=== PATIENT | male | born 1935 | race Caucasian/White ===

== ENCOUNTER 2017-08-04 09:05 | Inpatient (IN) | payer OTHER ==
[~2017-08-04] VITALS: Ht 185.4 cm; Wt 76.9 kg
[~2017-08-04 09:05] MED LIST: ALBU3IS INH; ALLO300 PO; ATOR80 PO; BISA5EC PO; BUPR75 PO; CEFD300 PO; CEPH500 PO; CYAN1000 PO; DIPHTC TOP; DOCU100 PO; ELIQUIS2.5 MG PO; FISH1000 PO; FLUO10 PO; LINZESS145 MCG PO; LOSA25 PO; METF500C PO; OMEP20ER PO; Omeprazole20 M1 PO; PROAIR RESPICL90 MCG INH; Polytrim Eye Dr10 ML RIGHTEYE; QUET100 PO; QUET200 PO; SITA100T2 PO; SKIEMOTC1 TOP; XARELTO20 MG PO; [UNRECOGNIZED DRUG - REMARK]
[2017-08-04 10:21] LABS: BASOPHILS ABSOLUTE AUTO 0.02 K/mm3 (0.00-0.23); BASOPHILS PERCENT AUTO 0 % (0-2); EOSINOPHILS ABSOLUTE AUTO 0.02 K/mm3 (0.00-0.68); EOSINOPHILS PERCENT AUTO 0 % (0-6); Hemoglobin 13.9 g/dL (13.5-17.5); IMMATURE GRAN ABSOLUTE AUTO 0.04 K/mm3 (0.00-0.10); IMMATURE GRAN PERCENT AUTO 0 % (0-1); LYMPHOCYTES ABSOLUTE AUTO 0.54 K/mm3 (0.84-5.20); LYMPHOCYTES PERCENT AUTO 4 % (21-46); MONOCYTES ABSOLUTE AUTO 0.15 K/mm3 (0.16-1.47); MONOCYTES PERCENT AUTO 1 % (4-13); Mean Corpuscular HGB 37.1 pg (26.0-34.0); Mean Corpuscular HGB Conc 33.9 g/dL (31.5-36.5); Mean Corpuscular Volume 109 fL (80-100); Mean Platelet Volume 9.3 fL (9.1-12.4); NEUTROPHILS ABSOLUTE AUTO 13.54 K/mm3 (1.96-9.15); NEUTROPHILS PERCENT AUTO 95 % (41-73); Platelet Count 148 K/mm3 (150-400); RDW Coefficient Variation 14.4 % (11.7-14.2); RDW Standard Deviation 58.2 fL (35.1-46.3); Red Blood Cell Count 3.75 M/mm3 (4.30-5.90); White Blood Cell Count 14.31 K/mm3 (4.00-11.30)
[2017-08-04 10:35] LABS: Alanine Aminotransfer (ALT/SGP 29 U/L (12-78); Albumin, Blood 3.7 g/dL (3.4-5.0); Alk Phos 131 U/L (50-136); Anion Gap 7 mmol/L (6-16); Aspartate Aminotrans (AST/SGOT 29 U/L (12-37); Bilirubin, Total 0.8 mg/dL (0.1-1.0); Blood Urea Nitrogen 15 mg/dL (8-24); Bun/Creatinine Ratio 16.9 (12.0-20.0); CO2, Blood 28 mmol/L (21-32); Chloride, Blood 104 mmol/L (98-108); Creatinine, Blood 0.89 mg/dL (0.60-1.20); Globulin, Blood 3.8 g/dL (2.2-4.0); Glomerular Filtration Rate >60 (60-); Glucose, Blood 108 mg/dL (70-99); Sodium, Blood 139 mmol/L (136-145); Total Protein, Blood 7.5 g/dL (6.4-8.2)
[2017-08-05 04:47] LABS: BASOPHILS ABSOLUTE AUTO 0.02 K/mm3 (0.00-0.23); BASOPHILS PERCENT AUTO 0 % (0-2); EOSINOPHILS ABSOLUTE AUTO 0.07 K/mm3 (0.00-0.68); EOSINOPHILS PERCENT AUTO 0 % (0-6); Hematocrit 30.9 % (37.0-53.0); Hemoglobin 10.4 g/dL (13.5-17.5); IMMATURE GRAN ABSOLUTE AUTO 0.07 K/mm3 (0.00-0.10); IMMATURE GRAN PERCENT AUTO 0 % (0-1); LYMPHOCYTES ABSOLUTE AUTO 1.39 K/mm3 (0.84-5.20); LYMPHOCYTES PERCENT AUTO 9 % (21-46); MONOCYTES ABSOLUTE AUTO 0.89 K/mm3 (0.16-1.47); MONOCYTES PERCENT AUTO 6 % (4-13); Mean Corpuscular HGB 36.7 pg (26.0-34.0); Mean Corpuscular HGB Conc 33.7 g/dL (31.5-36.5); Mean Corpuscular Volume 109 fL (80-100); Mean Platelet Volume 9.3 fL (9.1-12.4); NEUTROPHILS ABSOLUTE AUTO 13.26 K/mm3 (1.96-9.15); NEUTROPHILS PERCENT AUTO 85 % (41-73); Platelet Count 112 K/mm3 (150-400); RDW Coefficient Variation 14.5 % (11.7-14.2); RDW Standard Deviation 57.5 fL (35.1-46.3); Red Blood Cell Count 2.83 M/mm3 (4.30-5.90)
[2017-08-05 05:01] LABS: Anion Gap 5 mmol/L (6-16); Blood Urea Nitrogen 15 mg/dL (8-24); Bun/Creatinine Ratio 17.4 (12.0-20.0); CO2, Blood 25 mmol/L (21-32); Calcium, Blood 7.6 mg/dL (8.5-10.1); Chloride, Blood 109 mmol/L (98-108); Creatinine, Blood 0.86 mg/dL (0.60-1.20); Glomerular Filtration Rate >60 (60-); Glucose, Blood 101 mg/dL (70-99); Magnesium, Blood 1.8 mg/dL (1.6-2.4); Phosphorus, Blood 2.7 mg/dL (2.5-4.9); Potassium, Blood 3.8 mmol/L (3.5-5.5); Sodium, Blood 139 mmol/L (136-145)
[2017-08-06 05:51] LABS: BASOPHILS ABSOLUTE AUTO 0.01 K/mm3 (0.00-0.23); BASOPHILS PERCENT AUTO 0 % (0-2); EOSINOPHILS ABSOLUTE AUTO 0.07 K/mm3 (0.00-0.68); EOSINOPHILS PERCENT AUTO 1 % (0-6); Hematocrit 31.6 % (37.0-53.0); Hemoglobin 10.7 g/dL (13.5-17.5); IMMATURE GRAN ABSOLUTE AUTO 0.04 K/mm3 (0.00-0.10); IMMATURE GRAN PERCENT AUTO 0 % (0-1); LYMPHOCYTES ABSOLUTE AUTO 1.14 K/mm3 (0.84-5.20); LYMPHOCYTES PERCENT AUTO 11 % (21-46); MONOCYTES ABSOLUTE AUTO 0.73 K/mm3 (0.16-1.47); MONOCYTES PERCENT AUTO 7 % (4-13); Mean Corpuscular HGB 36.9 pg (26.0-34.0); Mean Corpuscular HGB Conc 33.9 g/dL (31.5-36.5); Mean Corpuscular Volume 109 fL (80-100); Mean Platelet Volume 10.1 fL (9.1-12.4); NEUTROPHILS ABSOLUTE AUTO 8.83 K/mm3 (1.96-9.15); NEUTROPHILS PERCENT AUTO 82 % (41-73); Platelet Count 117 K/mm3 (150-400); RDW Coefficient Variation 14.5 % (11.7-14.2); RDW Standard Deviation 58.1 fL (35.1-46.3); White Blood Cell Count 10.82 K/mm3 (4.00-11.30)
[2017-08-06 06:44] LABS: Anion Gap 9 mmol/L (6-16); Blood Urea Nitrogen 12 mg/dL (8-24); CO2, Blood 22 mmol/L (21-32); Calcium, Blood 8.2 mg/dL (8.5-10.1); Chloride, Blood 110 mmol/L (98-108); Creatinine, Blood 0.86 mg/dL (0.60-1.20); Glomerular Filtration Rate >60 (60-); Glucose, Blood 110 mg/dL (70-99); Potassium, Blood 3.8 mmol/L (3.5-5.5); Sodium, Blood 141 mmol/L (136-145)
[2017-08-06] MEDS ORDERED: AZIT500 PO (10:20)
[2017-08-06] MEDS ORDERED: SACC250C PO (10:20)
[2017-08-06] MEDS ORDERED: DULERA 200 MCG/13 GM INH (10:20)
[2017-08-06] MEDS ORDERED: CEFP200 PO (10:21)
== END 2017-08-06 11:04 | disposition home or self-care (01) | DRG 871 ==
LOC: ER 09:05 → ICUE 11:54 → ICUW 11:54 → ICUE 15:56 → MEDS 08-05 13:49
PROVIDERS: Emergency Medicine; Hospitalist
PROC: 02HV33Z Insertion of Infusion Device into Superior Vena Cava, Percutaneous Approach (ICD-10-PCS; principal; 2017-08-05)
DX: A41.9 Sepsis, unspecified organism (principal); J18.9 Pneumonia, unspecified organism; R65.21 Severe sepsis with septic shock; E11.22 Type 2 diabetes mellitus with diabetic chronic kidney disease; I95.9 Hypotension, unspecified; I48.91 Unspecified atrial fibrillation; N18.3 Chronic kidney disease, stage 3 (moderate); I12.9 Hypertensive chronic kidney disease with stage 1 through stage 4 chronic kidney disease, or unspecified chronic kidney disease; E78.5 Hyperlipidemia, unspecified; M10.9 Gout, unspecified; G47.00 Insomnia, unspecified; Z79.01 Long term (current) use of anticoagulants; Z79.899 Other long term (current) drug therapy; Z87.891 Personal history of nicotine dependence
CPT/HCPCS: 36415; 71046; 80048; 80053; 82947; 83605; 83735; 84100; 85025; 87040; 94640; 94760; 96365; 96366; 96368; 96375; 97116; 97161; 97530; 99285; A9270; G8978; G8979; J0456; J0696; J2060; J2405; J3010; J7030; J7050; J7060; J7120

== ENCOUNTER 2018-06-07 12:37 | Emergency (ER) | payer OTHER ==
[~2018-06-07] VITALS: Ht 175.3 cm; Wt 74.8 kg
[~2018-06-07 12:37] MED LIST changes: +AZIT500 PO; +CEFP200 PO; +DULERA 200 MCG/13 GM INH; +SACC250C PO
== END 2018-06-07 13:21 | disposition left against medical advice (07) ==
LOC: ER 12:37
DX: Z53.21 Procedure and treatment not carried out due to patient leaving prior to being seen by health care provider (principal)

== ENCOUNTER 2020-03-06 17:46 | Observation (INO) | payer OTHER ==
[~2020-03-06] VITALS: Ht 180.3 cm; Wt 67.1 kg
[~2020-03-06 17:46] MED LIST changes: +ALBU2.5V5 INH; -ALBU3IS INH; +FLUT.05NI; +IPRAT-ALBUT 0.5-3 ML INH; +METF500 PO; -METF500C PO; -QUET100 PO; +TRAZ50 PO
[2020-03-06 18:40] LABS: BASOPHILS ABSOLUTE AUTO 0.02 K/mm3 (0.00-0.23); BASOPHILS PERCENT AUTO 0 % (0-2); EOSINOPHILS ABSOLUTE AUTO 0.07 K/mm3 (0.00-0.68); EOSINOPHILS PERCENT AUTO 1 % (0-6); Hematocrit 39.8 % (37.0-53.0); IMMATURE GRAN ABSOLUTE AUTO 0.05 K/mm3 (0.00-0.10); IMMATURE GRAN PERCENT AUTO 0 % (0-1); LYMPHOCYTES ABSOLUTE AUTO 1.67 K/mm3 (0.84-5.20); LYMPHOCYTES PERCENT AUTO 15 % (21-46); MONOCYTES ABSOLUTE AUTO 0.93 K/mm3 (0.16-1.47); MONOCYTES PERCENT AUTO 8 % (4-13); Mean Corpuscular HGB 36.5 pg (26.0-34.0); Mean Corpuscular HGB Conc 32.7 g/dL (31.5-36.5); Mean Corpuscular Volume 112 fL (80-100); Mean Platelet Volume 9.6 fL (9.1-12.4); NEUTROPHILS ABSOLUTE AUTO 8.45 K/mm3 (1.96-9.15); NEUTROPHILS PERCENT AUTO 76 % (41-73); Platelet Count 145 K/mm3 (150-400); RDW Coefficient Variation 14.4 % (11.7-14.2); RDW Standard Deviation 59.5 fL (35.1-46.3); Red Blood Cell Count 3.56 M/mm3 (4.30-5.90); White Blood Cell Count 11.19 K/mm3 (4.00-11.30)
[2020-03-06 18:53] LABS: Source, Urine Clean Catch
[2020-03-06 18:55] LABS: Alanine Aminotransfer (ALT/SGP 19 U/L (12-78); Albumin/Globulin Ratio 0.9 (0.8-1.8); Alk Phos 95 U/L (50-136); Anion Gap 5 mmol/L (6-16); Aspartate Aminotrans (AST/SGOT 23 U/L (12-37); Bilirubin, Total 0.5 mg/dL (0.1-1.0); Blood Urea Nitrogen 14 mg/dL (8-24); Bun/Creatinine Ratio 16.3 (12.0-20.0); CO2, Blood 27 mmol/L (21-32); Calcium, Blood 8.8 mg/dL (8.5-10.1); Chloride, Blood 112 mmol/L (98-108); Creatinine, Blood 0.86 mg/dL (0.60-1.20); Ethanol (Alcohol), Blood, Med <3 mg/dL; Globulin, Blood 3.5 g/dL (2.2-4.0); Glomerular Filtration Rate >60 (60-); Glucose, Blood 93 mg/dL (70-99); Potassium, Blood 3.9 mmol/L (3.5-5.5); Sodium, Blood 144 mmol/L (136-145); Total Protein, Blood 6.5 g/dL (6.4-8.2); Troponin I <0.015 ng/mL (0.000-0.040)
[2020-03-06 19:04] LABS: Appearance, Urine Clear (Clear); Bilirubin, Urine Neg (Neg); Blood, Urine Neg (Neg); Color, Urine Yellow (P-Yellow); Glucose Qualitative, Urine Neg (Neg); Ketones, Urine Neg (Neg); Leukocyte Esterase, Urine 1+ (Neg); Nitrite, Urine Neg (Neg); Protein, Urine Neg (Neg); Urobilinogen, Urine 1+ (Normal)
[2020-03-06 19:23] LABS: Bacteria Rare /hpf; Calcium Oxalate Crystals Rare /hpf; Mucus Light (0-Heavy); Red Blood Cells, Urine 0-2 /hpf (0-2); Squamous Epithelial Cells Rare /hpf (Few); White Blood Cells, Urine 0-2 /hpf (0-5)
[2020-03-06 19:24] LABS: U Amphetamine Screen Not Detected; U Barbituate Screen Not Detected; U Benzodiazapine Screen Not Detected; U Buprenorphine Screen Not Detected; U Cannabinoids Screen Not Detected; U Cocaine Screen Not Detected; U Methadone Screen Not Detected; U Methamphetamine Screen Not Detected; U Opiates Screen Not Detected; U Oxycodone Screen Not Detected; U Phencyclidine Screen Not Detected; U Propoxyphene Screen Not Detected
--- NOTE | 2020-03-06 21:31 | NUR ---
FRANCO IS BEING ADMITTED TO THE FLOOR FOR LLL PNEUMONIA, WITH AMS. HE ARRIVED VIA GURNEY. HE WAS TRANSFERRED TO THE BED USING A SLIDER SHEET. FRANCO IS VERY FATIQUED, KEEPS EYES CLOSED, MOST OF THE TIME ASLEEP. HE DOES REPOND TO VERBAL STIMULI BUT TENDS TO NOT OPEN HIS EYES THAT OFTEN. DOES FALL ASLEEP BETWEEN QUESTIONS. DOES KNOW WHERE HE IS AT AND WHO HE IS. DOES NOT KNOW THE DATE OR YEAR. IS UNABLE TO ANSWER H&P QUESTIONS, THIS WAS COMPLETED BY RECORDS OF LAST ADMISSION IN . LUNG SOUNDS ARE VERY DIMINISHED ON THE LEFT, AND TIGHT IN BASES. RIGHT HAS MORE AIR FLOW THROUGH IT. DENIES SOB, OR CHEST PAIN. DOES NOT TAKE VERY DEEP BREATHS. VS WNL. ON RA SATS IN THE 90'S. SKIN IS VERY DRY, DRY MUCUS MEMBRANES. ATTENDS WET AND APPEARS TO HAVE SOME BM IN IT. BOTTOM IS UNCLEAN, NOT SURE IF HE IS ABLE TO CLEAN SELF. THERE WAS FECES STUCK TO BOTTOM. BOTTOM IS VERY RED ALONG WITH GROIN. CLEANSED KAITLIN AREA AND APPLIED BARRIER CREAM. NPO AT THIS TIME DUE TO POSSIBLE ASPIRATIONS. EXPLAINED CALL LIGHT BUT NOT SURE THE PATIENT RETAINED INFO. BED ALARM IS ON, PATIENT TUCKED INTO BED.
[2020-03-07 05:02] LABS: BASOPHILS ABSOLUTE AUTO 0.02 K/mm3 (0.00-0.23); BASOPHILS PERCENT AUTO 0 % (0-2); EOSINOPHILS ABSOLUTE AUTO 0.17 K/mm3 (0.00-0.68); EOSINOPHILS PERCENT AUTO 2 % (0-6); Hematocrit 37.6 % (37.0-53.0); Hemoglobin 12.6 g/dL (13.5-17.5); IMMATURE GRAN ABSOLUTE AUTO 0.03 K/mm3 (0.00-0.10); IMMATURE GRAN PERCENT AUTO 0 % (0-1); LYMPHOCYTES ABSOLUTE AUTO 1.84 K/mm3 (0.84-5.20); LYMPHOCYTES PERCENT AUTO 24 % (21-46); MONOCYTES ABSOLUTE AUTO 0.82 K/mm3 (0.16-1.47); MONOCYTES PERCENT AUTO 11 % (4-13); Mean Corpuscular HGB Conc 33.5 g/dL (31.5-36.5); Mean Corpuscular Volume 110 fL (80-100); Mean Platelet Volume 9.6 fL (9.1-12.4); NEUTROPHILS ABSOLUTE AUTO 4.82 K/mm3 (1.96-9.15); NEUTROPHILS PERCENT AUTO 63 % (41-73); Platelet Count 135 K/mm3 (150-400); RDW Coefficient Variation 14.4 % (11.7-14.2); RDW Standard Deviation 58.7 fL (35.1-46.3); Red Blood Cell Count 3.41 M/mm3 (4.30-5.90)
--- NOTE | 2020-03-07 05:07 | NUR ---
SHIFT SUMMARY: FRANCO WAS ADMITTED LAST NIGHT FOR LLL PNEUMONIA. HE IS ALERT AND ORINETED X2, VERY FATIQUED AND DOES NOT OPEN HIS EYES MUCH. HE SLEPT THROUGHOUT THE NIGHT EVEN THROUGH VITALS. NO MEDICATIONS WERE GIVEN HE WAS NOT AWAKE ENOUGH TO TAKE THEM, AND HE IS NPO STATUS TILL ST EVAL. VS WNL, AFEBRILE. NO PAIN. BLOOD SUGARS Q 6 HRS, RUNNING IN THE 92-100'S. NO INSULIN INDICATED. REDNESS NOTED ON BOTTOM, BARRIER CREAM APPLIED, LUNG SOUNDS TIGHT AND DIMINISHED, NO COUGH NOTED. NO OTHER CHANGES TO REPORT, CALL LIGHT IN REACH.
[2020-03-07 05:23] LABS: Anion Gap 4 mmol/L (6-16); Blood Urea Nitrogen 15 mg/dL (8-24); Bun/Creatinine Ratio 19.4 (12.0-20.0); CO2, Blood 29 mmol/L (21-32); Calcium, Blood 8.6 mg/dL (8.5-10.1); Chloride, Blood 109 mmol/L (98-108); Creatinine, Blood 0.77 mg/dL (0.60-1.20); Glomerular Filtration Rate >60 (60-); Glucose, Blood 93 mg/dL (70-99); Potassium, Blood 3.5 mmol/L (3.5-5.5); Sodium, Blood 142 mmol/L (136-145)
[2020-03-07] MEDS ORDERED: ACET325 PO (15:30)
[2020-03-07] MEDS ORDERED: AMOCLA875 PO (15:31)
--- NOTE | 2020-03-07 15:50 | NUR ---
DISCHARGE INSTRUCTIONS COMPLETED AND DISCUSSED WITH PT. WHAT MEDICATIONS HE WASN'T TO TAKE ANYMORE AND PLACED IT IN A PLASTIC BAG WITH STOP TAKING ON BAG. EXPLAINED NEED TO OBTAIN ANTIBIOTIC FROM PHARMACY AND COMPLETE THE MEDICATIONS BOTTLE STATES. TO CURB VIA W/C. HAVE SPOKEN WITH CAREGIVER EMILY PRIOR TO LEAVING.
--- NOTE | 2020-03-07 18:04 | NUR ---
Initial spiritual care note: Mr. Hernandez expressed worry about his being home alone. He was irritable that discharge was taking "so long." he did not want to engage in lengthy conversation. he declined needs/prayer.
== END 2020-03-07 15:45 | disposition home health service (06) ==
LOC: ER 17:46 → MEDS 17:47 → ENPENDDIS 03-07 14:14 → MEDS 03-07 15:45
PROVIDERS: Emergency Medicine; Nurse Practitioner Acute Care; ADMIT Internal Medicine
DX: J18.9 Pneumonia, unspecified organism (principal); R11.2 Nausea with vomiting, unspecified; F03.90 Unspecified dementia, unspecified severity, without behavioral disturbance, psychotic disturbance, mood disturbance, and anxiety; R62.7 Adult failure to thrive; I12.9 Hypertensive chronic kidney disease with stage 1 through stage 4 chronic kidney disease, or unspecified chronic kidney disease; E11.22 Type 2 diabetes mellitus with diabetic chronic kidney disease; E11.51 Type 2 diabetes mellitus with diabetic peripheral angiopathy without gangrene; N18.9 Chronic kidney disease, unspecified; E78.5 Hyperlipidemia, unspecified; K21.9 Gastro-esophageal reflux disease without esophagitis; I48.91 Unspecified atrial fibrillation; R53.1 Weakness; Z79.899 Other long term (current) drug therapy; Z87.891 Personal history of nicotine dependence; Z79.01 Long term (current) use of anticoagulants; Z79.84 Long term (current) use of oral hypoglycemic drugs; Z68.23 Body mass index [BMI] 23.0-23.9, adult
CPT/HCPCS: 36415; 70450; 71045; 80048; 80053; 81001; 82947; 83605; 84145; 84484; 85025; 87040; 87086; 92610; 93005; 93010; 94762; 96374; 97112; 97129; 97130; 97161; 97166; 97535; 99285-25; A9270-GY; G0378; G0480; J2543

== ENCOUNTER 2020-09-13 09:52 | Emergency (ER) | payer OTHER ==
[~2020-09-13] VITALS: Ht 182.9 cm; Wt 70.3 kg
[~2020-09-13 09:52] MED LIST changes: +ACET325 PO; +AMOCLA875 PO
[2020-09-13 10:35] LABS: BASOPHILS ABSOLUTE AUTO 0.04 K/mm3 (0.00-0.23); BASOPHILS PERCENT AUTO 0 % (0-2); EOSINOPHILS PERCENT AUTO 0 % (0-6); Hematocrit 41.7 % (37.0-53.0); Hemoglobin 14.3 g/dL (13.5-17.5); IMMATURE GRAN ABSOLUTE AUTO 0.07 K/mm3 (0.00-0.10); IMMATURE GRAN PERCENT AUTO 0 % (0-1); LYMPHOCYTES ABSOLUTE AUTO 0.25 K/mm3 (0.84-5.20); LYMPHOCYTES PERCENT AUTO 2 % (21-46); MONOCYTES ABSOLUTE AUTO 0.31 K/mm3 (0.16-1.47); MONOCYTES PERCENT AUTO 2 % (4-13); Mean Corpuscular HGB 36.2 pg (26.0-34.0); Mean Corpuscular HGB Conc 34.3 g/dL (31.5-36.5); Mean Corpuscular Volume 106 fL (80-100); Mean Platelet Volume 9.1 fL (9.1-12.4); NEUTROPHILS ABSOLUTE AUTO 16.02 K/mm3 (1.96-9.15); NEUTROPHILS PERCENT AUTO 96 % (41-73); Platelet Count 220 K/mm3 (150-400); RDW Coefficient Variation 14.2 % (11.7-14.2); RDW Standard Deviation 55.6 fL (35.1-46.3); Red Blood Cell Count 3.95 M/mm3 (4.30-5.90); White Blood Cell Count 16.69 K/mm3 (4.00-11.30)
[2020-09-13 11:02] LABS: Alanine Aminotransfer (ALT/SGP 16 U/L (12-78); Albumin/Globulin Ratio 0.7 (0.8-1.8); Alk Phos 106 U/L (50-136); Anion Gap 7 mmol/L (6-16); Aspartate Aminotrans (AST/SGOT 16 U/L (12-37); Bilirubin, Total 0.7 mg/dL (0.1-1.0); Blood Urea Nitrogen 20 mg/dL (8-24); Bun/Creatinine Ratio 19.2 (12.0-20.0); CO2, Blood 28 mmol/L (21-32); Chloride, Blood 108 mmol/L (98-108); Creatinine, Blood 1.04 mg/dL (0.60-1.20); Globulin, Blood 4.3 g/dL (2.2-4.0); Glomerular Filtration Rate >60 (60-); Glucose, Blood 85 mg/dL (70-99); Sodium, Blood 143 mmol/L (136-145); Total Protein, Blood 7.3 g/dL (6.4-8.2)
[2020-09-13 11:06] LABS: Source, Urine Catheter
[2020-09-13 11:25] LABS: Appearance, Urine Clear (Clear); Bilirubin, Urine Neg (Neg); Blood, Urine Neg (Neg); Color, Urine Yellow (P-Yellow); Glucose Qualitative, Urine Neg (Neg); Ketones, Urine Neg (Neg); Leukocyte Esterase, Urine Neg (Neg); Nitrite, Urine Neg (Neg); Protein, Urine Neg (Neg); Specific Gravity, Urine 1.025 (1.003-1.022); Urobilinogen, Urine 1+ (Normal)
[2020-09-13 11:53] LABS: Influenza A, PCR NEGATIVE (NEGATIVE); Influenza B, PCR NEGATIVE (NEGATIVE); Resp Syncytial Virus, PCR NEGATIVE (NEGATIVE); SARS-Cov-2 (COVID-19) PCR, MMC NEGATIVE (NEGATIVE)
[2020-09-13] MEDS ORDERED: AZIT500 PO (12:06)
== END 2020-09-13 15:28 | disposition home or self-care (01) ==
LOC: ER 09:52
PROVIDERS: Emergency Medicine
DX: J18.9 Pneumonia, unspecified organism (principal); F03.90 Unspecified dementia, unspecified severity, without behavioral disturbance, psychotic disturbance, mood disturbance, and anxiety; Z79.899 Other long term (current) drug therapy
CPT/HCPCS: 0241U; 36415; 51701; 51798; 71045; 80053; 81003; 84443; 85025; 93005; 93010; 96365; 99285-25; A9270; J0696; J7030

== ENCOUNTER 2020-10-18 10:51 | Inpatient (IN) | payer OTHER, MEDICARE ==
[~2020-10-18] VITALS: Ht 182.9 cm; Wt 72.4 kg
[2020-10-18 11:15] LABS: Source, Urine Catheter
[2020-10-18 11:30] LABS: BASOPHILS ABSOLUTE AUTO 0.02 K/mm3 (0.00-0.23); BASOPHILS PERCENT AUTO 0 % (0-2); EOSINOPHILS ABSOLUTE AUTO 0.01 K/mm3 (0.00-0.68); EOSINOPHILS PERCENT AUTO 0 % (0-6); Hematocrit 39.8 % (37.0-53.0); Hemoglobin 13.5 g/dL (13.5-17.5); IMMATURE GRAN ABSOLUTE AUTO 0.09 K/mm3 (0.00-0.10); IMMATURE GRAN PERCENT AUTO 1 % (0-1); LYMPHOCYTES ABSOLUTE AUTO 0.26 K/mm3 (0.84-5.20); LYMPHOCYTES PERCENT AUTO 1 % (21-46); MONOCYTES ABSOLUTE AUTO 0.41 K/mm3 (0.16-1.47); MONOCYTES PERCENT AUTO 2 % (4-13); Mean Corpuscular HGB Conc 33.9 g/dL (31.5-36.5); Mean Corpuscular Volume 106 fL (80-100); Mean Platelet Volume 9.3 fL (9.1-12.4); NEUTROPHILS PERCENT AUTO 96 % (41-73); Platelet Count 157 K/mm3 (150-400); RDW Coefficient Variation 14.7 % (11.7-14.2); RDW Standard Deviation 57.7 fL (35.1-46.3); Red Blood Cell Count 3.75 M/mm3 (4.30-5.90); White Blood Cell Count 18.09 K/mm3 (4.00-11.30)
[2020-10-18 11:35] LABS: Alanine Aminotransfer (ALT/SGP 14 U/L (12-78); Albumin/Globulin Ratio 0.8 (0.8-1.8); Alk Phos 100 U/L (50-136); Anion Gap 5 mmol/L (6-16); Aspartate Aminotrans (AST/SGOT 16 U/L (12-37); Bilirubin, Total 0.8 mg/dL (0.1-1.0); Blood Urea Nitrogen 13 mg/dL (8-24); CO2, Blood 28 mmol/L (21-32); Calcium, Blood 8.6 mg/dL (8.5-10.1); Chloride, Blood 103 mmol/L (98-108); Creatinine, Blood 0.87 mg/dL (0.60-1.20); Globulin, Blood 3.8 g/dL (2.2-4.0); Glomerular Filtration Rate >60 (60-); Glucose, Blood 109 mg/dL (70-99); Sodium, Blood 136 mmol/L (136-145); Total Protein, Blood 6.8 g/dL (6.4-8.2)
[2020-10-18 11:37] LABS: International Normalized Ratio 1.01; Prothrombin Time Results 10.9 Sec (9.7-11.5)
[2020-10-18 11:41] LABS: Bilirubin, Urine Neg (Neg); Blood, Urine Neg (Neg); Glucose Qualitative, Urine Neg (Neg); Ketones, Urine Neg (Neg); Leukocyte Esterase, Urine Neg (Neg); Nitrite, Urine Neg (Neg); Protein, Urine Neg (Neg); Specific Gravity, Urine 1.015 (1.003-1.022); Urobilinogen, Urine NORM (Normal)
[2020-10-18 11:46] LABS: Appearance, Urine Clear (Clear); Color, Urine Yellow (P-Yellow)
[2020-10-18] MEDS ORDERED: LINZESS145 MCG PO (13:20)
[2020-10-18] MEDS ORDERED: QUETIAPINE FUM PO (13:20)
[2020-10-18] MEDS ORDERED: METFORMIN HCL500 M3 PO (13:21)
[2020-10-18] MEDS ORDERED: Florastor250 MG PO (17:18)
[2020-10-18] MEDS ORDERED: FLONASE ALLERG9.9 M2 (17:20)
[2020-10-18] MEDS ORDERED: LOSA25 PO (17:21)
[2020-10-18] MEDS ORDERED: MASOPHEN500 MG PO (17:24)
[2020-10-18] MEDS ORDERED: FLUTICASONE PROPIONA (17:26)
--- NOTE | 2020-10-18 18:12 | NUR ---
ADMIT SUMMARY/SHIFT SUMMARY PT ARRIVED TO UNIT @ APPROX 1600 VIA GURNEY FROM ED. PT A&Ox3-4 WITH SOME OCCASIONAL FORGETFULNESS AND CONFUSION. PT ABLE TO MAKE NEEDS KNOWN BUT DOES NOT CALL PRIOR TO SITTING UP. BED ALARM ON. PT 1 ASSIST WITH FWW, USING URINAL AT BEDSIDE. ADMISSION COMPLETED. PT ON 4 L/MIN O2 VIA NC, RA IS PT BASELINE. PT DENIES ANY PAIN OR DISTRESS, STATES HE IS TIRED. PT WAS ABLE TO REST AFTER COMPLETING DISCHARGE. BP ON THE LOWER SIDE, STATES THIS IS NORMAL FOR HIM. DR. RIVERA REQUESTION VS BE COMPLETED Q2H AND SEND PT TO PCU IF SBP DROPS BELOW 90. WILL INFORM ONCOMING NURSE, ORDER PLACED NURSE NOTIFY. CHARGE NURSES ALSO INFORMED. PT IS CURRENTLY LYING IN BED WATCHING TV. CALL LIGHT WITHIN REACH, BED ALARM ON.
--- NOTE | 2020-10-19 03:59 | NUR ---
SUMMARY PT DENIES INCREASED SOB. PT HAD NO OTHER NOTED FEVERS. PT SBP HAS REMAINED >90 T/O SHIFT. PT HAS REMAINED NPO. PT CURRENTLY SLEEPING AND IN NO DISTRESS. CALL LIGHT IN REACH AND BED ALARM ON.
[2020-10-19 04:45] LABS: BASOPHILS ABSOLUTE AUTO 0.02 K/mm3 (0.00-0.23); BASOPHILS PERCENT AUTO 0 % (0-2); EOSINOPHILS ABSOLUTE AUTO 0.07 K/mm3 (0.00-0.68); EOSINOPHILS PERCENT AUTO 1 % (0-6); Hemoglobin 11.2 g/dL (13.5-17.5); IMMATURE GRAN ABSOLUTE AUTO 0.07 K/mm3 (0.00-0.10); IMMATURE GRAN PERCENT AUTO 1 % (0-1); LYMPHOCYTES ABSOLUTE AUTO 1.13 K/mm3 (0.84-5.20); LYMPHOCYTES PERCENT AUTO 7 % (21-46); MONOCYTES PERCENT AUTO 5 % (4-13); Mean Corpuscular HGB 36.5 pg (26.0-34.0); Mean Corpuscular HGB Conc 33.9 g/dL (31.5-36.5); Mean Corpuscular Volume 108 fL (80-100); Mean Platelet Volume 9.4 fL (9.1-12.4); NEUTROPHILS ABSOLUTE AUTO 13.08 K/mm3 (1.96-9.15); NEUTROPHILS PERCENT AUTO 86 % (41-73); Platelet Count 140 K/mm3 (150-400); RDW Coefficient Variation 15.1 % (11.7-14.2); RDW Standard Deviation 59.7 fL (35.1-46.3); Red Blood Cell Count 3.07 M/mm3 (4.30-5.90); White Blood Cell Count 15.17 K/mm3 (4.00-11.30)
[2020-10-19 05:05] LABS: Anion Gap 3 mmol/L (6-16); Blood Urea Nitrogen 16 mg/dL (8-24); Bun/Creatinine Ratio 16.1 (12.0-20.0); CO2, Blood 27 mmol/L (21-32); Calcium, Blood 7.9 mg/dL (8.5-10.1); Chloride, Blood 106 mmol/L (98-108); Glomerular Filtration Rate >60 (60-); Glucose, Blood 103 mg/dL (70-99); Potassium, Blood 3.8 mmol/L (3.5-5.5); Sodium, Blood 136 mmol/L (136-145)
--- NOTE | 2020-10-19 15:05 | NUR ---
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 PT HAS BEEN ON O2-22L WITH HYPOTENSION. CAREGIVER REPORTS THAT SHE HAS NOTICED A DECLINE IN PT'S HEALTH OVER THE LAST COUPLE DAYS. PT SAW PT TODAY AND IS RECOMMENDING HOME HEALTH W/ PT SERVICES AND HOME SAFETY EVALUATIONS SWALLOW EVAL.- OVERALL DID WELL WITH EVALUATION AND ASPIRATIONS PRECAUTIONS WERE REVIEWED WITH PT. DROPPED OFF KATY LETTER AT PT'S ROOM IN CASE HE D/C OVER THE WEEKEND. REVIEWED WITH PT. -RACHEAL
--- NOTE | 2020-10-19 17:30 | NUR ---
NO ACUTE CHANGES. PT IS COMPLIANT WITH CARES. CG IN THIS SHIFT. PT IS ALERT AND ORIENTED 2/3. CALL LIGHT WITHIN REACH.
--- NOTE | 2020-10-19 23:08 | NUR ---
PATIENT HAD LARGE BROWN COLORED EMESIS WITH BROWNISH RED CHUNKS WITH SHAPE AND CONSISTANCY OF BEANS. PATIENT UNSURE OF WHAT HE ATE THIS EVENING. FOUND PO ZOFRAN IN EMESIS. ORDER FROM MD FOR IV ZOFRAN RECEIVED AND GIVEN. ALSO RECEIVED NOTICE FROM LAB THAT PATIENT HAD BLOOD CULTURE CONTAINING GRAM POSITIVE COCCI IN CLUSTERS. NOTIFIED PHARMACY WHO SAID ZOSYM SUFFICIENT TO COVER.
--- NOTE | 2020-10-20 04:19 | NUR ---
PATIENT HAD A ROUGH NIGHT BEING NAUSEATED AT HS WITH A HUGE EMESIS ON FLOOR (SEE NURSES NOTE). 2ND EMESIS WAS SMALLER AND HIS FINAL EPISODE IV ZOFRAN ADMINISTERED AND PATIENT FINALLY FELL ASLEEP. ONE BLOOD CULTURE CAME IN WITH GRAM POSITIVE COCCI IN CLUSTERS, HOWEVER, WHEN PHARMACY WAS INFORMED, THEY SAID HE WOULD BE COVERED WITH THE ZOSYN HE WAS RECEIVING
[2020-10-20 04:44] LABS: BASOPHILS ABSOLUTE AUTO 0.02 K/mm3 (0.00-0.23); BASOPHILS PERCENT AUTO 0 % (0-2); EOSINOPHILS ABSOLUTE AUTO 0.11 K/mm3 (0.00-0.68); EOSINOPHILS PERCENT AUTO 1 % (0-6); Hematocrit 31.5 % (37.0-53.0); Hemoglobin 10.6 g/dL (13.5-17.5); IMMATURE GRAN ABSOLUTE AUTO 0.04 K/mm3 (0.00-0.10); IMMATURE GRAN PERCENT AUTO 0 % (0-1); LYMPHOCYTES ABSOLUTE AUTO 1.17 K/mm3 (0.84-5.20); LYMPHOCYTES PERCENT AUTO 13 % (21-46); MONOCYTES ABSOLUTE AUTO 0.64 K/mm3 (0.16-1.47); MONOCYTES PERCENT AUTO 7 % (4-13); Mean Corpuscular HGB 35.5 pg (26.0-34.0); Mean Corpuscular HGB Conc 33.7 g/dL (31.5-36.5); Mean Corpuscular Volume 105 fL (80-100); Mean Platelet Volume 9.6 fL (9.1-12.4); NEUTROPHILS ABSOLUTE AUTO 7.26 K/mm3 (1.96-9.15); NEUTROPHILS PERCENT AUTO 79 % (41-73); Platelet Count 150 K/mm3 (150-400); RDW Coefficient Variation 14.5 % (11.7-14.2); RDW Standard Deviation 56.5 fL (35.1-46.3); Red Blood Cell Count 2.99 M/mm3 (4.30-5.90); White Blood Cell Count 9.24 K/mm3 (4.00-11.30)
[2020-10-20 05:06] LABS: Alanine Aminotransfer (ALT/SGP 10 U/L (12-78); Albumin, Blood 2.3 g/dL (3.4-5.0); Albumin/Globulin Ratio 0.7 (0.8-1.8); Alk Phos 62 U/L (50-136); Anion Gap 4 mmol/L (6-16); Aspartate Aminotrans (AST/SGOT 12 U/L (12-37); Bilirubin, Total 0.6 mg/dL (0.1-1.0); Blood Urea Nitrogen 13 mg/dL (8-24); Bun/Creatinine Ratio 13.1 (12.0-20.0); CO2, Blood 27 mmol/L (21-32); Calcium, Blood 7.9 mg/dL (8.5-10.1); Chloride, Blood 104 mmol/L (98-108); Creatinine, Blood 0.99 mg/dL (0.60-1.20); Globulin, Blood 3.4 g/dL (2.2-4.0); Glomerular Filtration Rate >60 (60-); Glucose, Blood 95 mg/dL (70-99); Potassium, Blood 3.6 mmol/L (3.5-5.5); Sodium, Blood 135 mmol/L (136-145); Total Protein, Blood 5.7 g/dL (6.4-8.2)
[2020-10-20] MEDS ORDERED: AMOCLA875 PO (10:25)
[2020-10-20] MEDS ORDERED: ALBU90OI6 INH (10:26)
--- NOTE | 2020-10-20 10:50 | NUR ---
Discharge Summary A/Ox3, forgetful. Pleasant. Often sets bed/chair alarm off, calls seldom. Discharge to home with Elysia HA. Reviewed discharge paperwork with caregiver Julissa at the bedside. Meds faxed to [facility]. IV's removed. Escorted by CEO via w/c, personal belongings sent home including two watches.
== END 2020-10-20 10:52 | disposition home or self-care (01) | DRG 871 ==
LOC: ER 10:51 → MEDS 14:31
PROVIDERS: Family Medicine; Physician Assistant; ADMIT Student in an Organized Health Care Education/Training Program
DX: A41.9 Sepsis, unspecified organism (principal); J18.9 Pneumonia, unspecified organism; R65.20 Severe sepsis without septic shock; I48.91 Unspecified atrial fibrillation; R62.7 Adult failure to thrive; Z68.23 Body mass index [BMI] 23.0-23.9, adult; F03.90 Unspecified dementia, unspecified severity, without behavioral disturbance, psychotic disturbance, mood disturbance, and anxiety; I12.9 Hypertensive chronic kidney disease with stage 1 through stage 4 chronic kidney disease, or unspecified chronic kidney disease; E11.22 Type 2 diabetes mellitus with diabetic chronic kidney disease; N18.9 Chronic kidney disease, unspecified; K21.9 Gastro-esophageal reflux disease without esophagitis; E78.5 Hyperlipidemia, unspecified; E11.51 Type 2 diabetes mellitus with diabetic peripheral angiopathy without gangrene; D63.1 Anemia in chronic kidney disease; G47.00 Insomnia, unspecified; F32.9 Major depressive disorder, single episode, unspecified; Z79.899 Other long term (current) drug therapy; Z79.84 Long term (current) use of oral hypoglycemic drugs; Z79.01 Long term (current) use of anticoagulants; Z87.891 Personal history of nicotine dependence
CPT/HCPCS: 36415; 71045; 80048; 80053; 81003; 82947; 83605; 85025; 85610; 85730; 87040; 87086; 92610; 93005; 93010; 96361; 96365; 97110; 97116; 97162; 99285-25; A9270; J2405; J2543; J7030; J7050

== ENCOUNTER 2020-10-21 04:46 | Inpatient (IN) | payer MEDICARE, OTHER ==
[~2020-10-21] VITALS: Ht 175.3 cm; Wt 76.8 kg
[~2020-10-21 04:46] MED LIST changes: +ALBU90OI6 INH; +FLONASE ALLERG9.9 M2; +FLUTICASONE PROPIONA; +Florastor250 MG PO; +MASOPHEN500 MG PO; +METFORMIN HCL500 M3 PO; +QUETIAPINE FUM PO
[2020-10-21 05:11] LABS: PCO2 Arterial 40.2 mmHg (35-45); pH Blood Arterial 7.41 (7.35-7.45)
[2020-10-21 05:19] LABS: Hematocrit 38.1 % (37.0-53.0); Hemoglobin 12.8 g/dL (13.5-17.5); Mean Corpuscular HGB 35.6 pg (26.0-34.0); Mean Corpuscular HGB Conc 33.6 g/dL (31.5-36.5); Mean Corpuscular Volume 106 fL (80-100); Platelet Count 160 K/mm3 (150-400); RDW Coefficient Variation 14.6 % (11.7-14.2); RDW Standard Deviation 57.7 fL (35.1-46.3); White Blood Cell Count 5.83 K/mm3 (4.00-11.30)
[2020-10-21 05:40] LABS: Alanine Aminotransfer (ALT/SGP 13 U/L (12-78); Albumin, Blood 2.5 g/dL (3.4-5.0); Albumin/Globulin Ratio 0.6 (0.8-1.8); Alk Phos 81 U/L (50-136); Anion Gap 7 mmol/L (6-16); Aspartate Aminotrans (AST/SGOT 26 U/L (12-37); Bilirubin, Total 0.5 mg/dL (0.1-1.0); Blood Urea Nitrogen 11 mg/dL (8-24); Bun/Creatinine Ratio 11.4 (12.0-20.0); CO2, Blood 26 mmol/L (21-32); Calcium, Blood 8.4 mg/dL (8.5-10.1); Chloride, Blood 103 mmol/L (98-108); Creatinine, Blood 0.96 mg/dL (0.60-1.20); Globulin, Blood 4.2 g/dL (2.2-4.0); Glomerular Filtration Rate >60 (60-); Glucose, Blood 176 mg/dL (70-99); Potassium, Blood 3.6 mmol/L (3.5-5.5); Sodium, Blood 136 mmol/L (136-145); Total Protein, Blood 6.7 g/dL (6.4-8.2)
[2020-10-21 05:48] LABS: BAND PERCENT MAN 7 % (0-8); BASOPHILS ABSOLUTE MAN 0.05 K/mm3 (0.00-0.23); BASOPHILS PERCENT MAN 1 % (0-2); EOSINOPHILS PERCENT MAN 0 % (0-6); LYMPHOCYTES ABSOLUTE MAN 0.17 K/mm3 (0.84-5.20); LYMPHOCYTES PERCENT MAN 3 % (21-46); MONOCYTES ABSOLUTE MAN 0.17 K/mm3 (0.16-1.47); MONOCYTES PERCENT MAN 3 % (4-13); NEUTROPHILS ABSOLUTE MAN 5.42 K/mm3 (1.96-9.15); SEG NEUTROPHILS PERCENT MAN 86 % (41-73); TOTAL CELLS COUNTED 100
[2020-10-21 06:52] LABS: Source, Urine Catheter
[2020-10-21 06:55] LABS: Appearance, Urine Clear (Clear); Bilirubin, Urine Neg (Neg); Blood, Urine Neg (Neg); Color, Urine Yellow (P-Yellow); Glucose Qualitative, Urine Neg (Neg); Ketones, Urine Neg (Neg); Leukocyte Esterase, Urine Neg (Neg); Nitrite, Urine Neg (Neg); Protein, Urine 1+ (Neg); Specific Gravity, Urine 1.015 (1.003-1.022); Urobilinogen, Urine NORM (Normal)
--- NOTE | 2020-10-21 08:48 | NUR ---
ADMIT PT ARRIVED TO ICU 13 FROM ED. PT WAKES TO VOICE, MUMBLES, VERY DIFFICULT TO UNDERSTAND BUT ABLE TO SAY HIS NAME CORRECTLY THEN FALLS BACK ASLEEP. LULNGS ARE COARSE. SPO2 96% ON 6L/NC, TURNED DOWN TO 5L AND NOW 94%. HOOKED HUMIDITY UP TO OXYGEN FLOW. SR, SBP 90S. PT HAD SMALL BLANCHABLE RED AREA ON LOWER BACK, FOAM DRESSING PLACED. DRESSING OVER L CRAFT HAS SMALL OPEN SORE UNDER IT. ZOSYN STARTED, IV FLUIDS INFUSING. BED ALARM ON. CONTINUE TO MONITOR.
--- NOTE | 2020-10-21 17:11 | NUR ---
SHIFT SUMMARY PT HAS BEEN RESTING IN BED THROUGHOUT THE SHIFT. HE HAS BECOME EASIER TO WAKE UP THROUGHOUT THE SHIFT. HE IS ORIENTED TO HIMSELF AND PLACE, BUT WAS UNABLE TO SAY THE REASON HE CAME INTO THE HOSPITAL. HIS FEVER CAME DOWN TO 99.9F, BUT IS STARTING TO WORK IT'S WAY BACK UP. HE WAS HYPOTENSIVE, FLUID BOLUS GIVEN WELL ALBUMIN, THEN PT STARTED ON LEVOPHED FOR ABOUT AN HOUR BEFORE TITRATING IT OFF BECAUSE BP RECOVERED. DR. SPRGAUE WAS CONSULTED BY DR. PLASENCIA. LUNGS ARE CLEAR. OXYGEN TITRATED OFF THROUGHOUT THE SHIFT AND PT IS NOW MAINTAINING SPO2 ABOVE 92% ON RA. CARDOSO DRAINING CL YELLOW URINE. DRESSING ON L CRAFT CHANGED. SPOKE WITH PT'S AND SON PROVIDING THEM WITH UPDATES. CONTINUING TO MONITOR.
--- NOTE | 2020-10-21 21:01 | NUR ---
PATIENT AWAKE, ANSWERING QUESTIONS APPROPRIATELY. NEEDING FREQUENT REMINDERS REGARDING BEING NPO DUE TO RISK FOR ASPIRATION, PLAN FOR SPEECH EVAL TOMORROW. LEVOPHED REMAINS OFF WITH SBP 110'S. BIOX 93-95% ON RA. LUNG SOUNDS DECREASED LEFT BASE.
[2020-10-22 04:15] LABS: BASOPHILS ABSOLUTE AUTO 0.01 K/mm3 (0.00-0.23); BASOPHILS PERCENT AUTO 0 % (0-2); EOSINOPHILS ABSOLUTE AUTO 0.05 K/mm3 (0.00-0.68); EOSINOPHILS PERCENT AUTO 1 % (0-6); Hematocrit 27.5 % (37.0-53.0); Hemoglobin 9.3 g/dL (13.5-17.5); IMMATURE GRAN ABSOLUTE AUTO 0.04 K/mm3 (0.00-0.10); IMMATURE GRAN PERCENT AUTO 1 % (0-1); LYMPHOCYTES ABSOLUTE AUTO 0.79 K/mm3 (0.84-5.20); LYMPHOCYTES PERCENT AUTO 9 % (21-46); MONOCYTES ABSOLUTE AUTO 0.46 K/mm3 (0.16-1.47); MONOCYTES PERCENT AUTO 5 % (4-13); Mean Corpuscular HGB Conc 33.8 g/dL (31.5-36.5); Mean Corpuscular Volume 107 fL (80-100); Mean Platelet Volume 9.7 fL (9.1-12.4); NEUTROPHILS ABSOLUTE AUTO 7.24 K/mm3 (1.96-9.15); NEUTROPHILS PERCENT AUTO 84 % (41-73); Platelet Count 120 K/mm3 (150-400); RDW Coefficient Variation 14.7 % (11.7-14.2); RDW Standard Deviation 57.5 fL (35.1-46.3); Red Blood Cell Count 2.58 M/mm3 (4.30-5.90); White Blood Cell Count 8.59 K/mm3 (4.00-11.30)
[2020-10-22 04:36] LABS: Alanine Aminotransfer (ALT/SGP 9 U/L (12-78); Albumin, Blood 2.9 g/dL (3.4-5.0); Alk Phos 47 U/L (50-136); Anion Gap 4 mmol/L (6-16); Aspartate Aminotrans (AST/SGOT 9 U/L (12-37); Blood Urea Nitrogen 10 mg/dL (8-24); Bun/Creatinine Ratio 12.4 (12.0-20.0); CO2, Blood 26 mmol/L (21-32); Chloride, Blood 112 mmol/L (98-108); Creatinine, Blood 0.81 mg/dL (0.60-1.20); Globulin, Blood 2.8 g/dL (2.2-4.0); Glomerular Filtration Rate >60 (60-); Glucose, Blood 101 mg/dL (70-99); Potassium, Blood 3.3 mmol/L (3.5-5.5); Sodium, Blood 142 mmol/L (136-145); Total Protein, Blood 5.7 g/dL (6.4-8.2)
--- NOTE | 2020-10-22 05:51 | NUR ---
SUMMARY PATIENT AWAKE AND RESTLESS AT TIMES, VERBALIZED HAVING DIFFICULTY SLEEPING. VERBALIZED HAVING DIFFICULTY GETTING COMFORTABLE IN BED. TYLENOL PO GIVEN WITHOUT DIFFICULTY FOR TEMP 100.4 AND OXYGEN PLACED 2L/NC DUE TO BIOX DOWN TO 89% WHEN SLEEPING. LEVOPHED REMAINS OFF.
--- NOTE | 2020-10-22 11:16 | NUR ---
ASSUMED CARE OF PT, REPORT RCV'D FROM DEBRA KHAN. PT ALERT, MOSTLY ORIENTED WITH PERIODS OF MINOR CONFUSION. PT COOPERATIVE WITH CARE. BED ALARM/CHAIR ALARM ON D/T PT'S HISTORY OF FALLS AND WEAKNESS. PT USES CALL LIGHT APPROPRIATELY AND IS ABLE TO ADEQUATELY EXPRESS NEEDD. PT TAKES NASAL CANNULA OFF AND SATS REMAIN>90% ON ROOM AIR. PT SINUS GEM, BP WNL. CARDOSO CATHETER REMOVED. NS @ 125 ML/HR RUNNING INTO CRISTINO PICC. PIV IN RA SL. SEE FULL SHIFT ASSESSMENT.
--- NOTE | 2020-10-22 13:33 | NUR ---
PER NOC NURSE AND PT, PT HAS [place]RADE $1500 LOCATED IN HIS BELONGINGS BAG. THIS RN SPOKE WITH PT AND STRONGLY ENCOURAGED HIM TO PLACE MONEY IN HOSPITAL SAFE VIA SECURITY. PT ADAMENTLY REFUSES TO LET SECURITY TAKE MONEY. TOLD PT THAT IS WOULD BE SAFEST IF HE HAD HIS TAKE HIS MONEY HOME FOR SAFE KEEPING, PT STATES UNDERSTANDING.
--- NOTE | 2020-10-22 14:01 | NUR ---
PT'S POLST ON FRONT OF CHART EXPRESSING "LIMITED CODE". DR. ONEIL EXPLAINED AND DISCUSSED IN DETAIL PT'S OPTIONS FOR CPR AND INTUBATION. PT REQUESTS TO BE FULL CODE AT THIS TIME.
--- NOTE | 2020-10-22 15:06 | NUR ---
PT TO BE TRANSFERRED TO PCU 2. REPORT GIVEN TO DEBRA HUTTON.
--- NOTE | 2020-10-22 15:30 | NUR ---
Spoke with Dr and reviewed recent POLST found in EMR. Code status changed per Dr to reflect pt's wishes per POLST for CPR but no intubation. Pt has been moved to PCU 2 this afternoon.
[2020-10-22 15:58] LABS: Hematocrit 30.4 % (37.0-53.0); Hemoglobin 10.2 g/dL (13.5-17.5)
--- NOTE | 2020-10-22 17:23 | NUR ---
10/22/20- per chart review with Dr. Soto, pt will be moved from ICU to PCu today. Palliative care consult has been placed and pt will be in the hospital for the next 2-3 days due to needing IV antibiotics. -vic
--- NOTE | 2020-10-22 18:09 | NUR ---
PATIENT ARRIVED TO UNIT VIA WHEELCHAIR, PATIENT APPEARED COLD AND PALE, PATIENT COMPLAINED OF CHEST PAIN, WAS AGITATED AND STATED "YOU ALL AREN'T DOING ANYTHING FOR ME." THIS RN NOTIFIED DR. NOGUERA, EKG DONE, TROP ORDERED. BED ALARM IN PLACE. PATIENT HAS WHEEZES WITH INSPIRATION IN UPPER LUNGS, DIM IN BASES. PATIENT ON ROOM AIR IN MID-HIGH 90S. A LITTLE BIT LATER AFTER PATIENT HAD BEEN SETTLED IN ROOM, BED ALARM WENT OFF. PATIENT HAD PULLED OUT PICC AND WAS NAKED, STATED "I AM GOING HOME, I HURT ALL OVER AND I'M GOING HOME." PATIENT WAS GETTING UP TO LEAVE. THIS RN HELPED SETTLE PATIENT IN BED, PATIENT WAS AGITATED AND INSISTENT THAT HE WAS LEAVING. DR. ONEIL NOTIFIED, ORDERS FOR D-DIMER AND CXR GIVEN. DR. ONEIL GAVE ORDERS FOR 0.25 MG ATIVAN TWO TIMES WHILE PATIENT WAS IN UNIT. PATIENT'S D-DIMER ELEVATED, ORDERS FOR CHEST CT GIVEN. PATIENT CONTINUED TO BE AGITATED, EITHER THIS RN OR AUTOMATION AND CONTROL ENGINEER WAS AT BEDSIDE PATIENT WAS CONTINUOUSLY TRYING TO GET UP AND LEAVE UNTIL PATIENT LEFT WITH TRANSPORT TO CT. ORDERS FOR BLADDER SCAN GIVEN, 110 MLS.
--- NOTE | 2020-10-22 18:39 | NUR ---
PT TRANSFERRED BACK TO ICU ROOM 13 FROM PCU AT 1810. PT ARRIVES CONFUSED AND ATTEMPTING TO UNSAFELY GET OUT OF BED. PT PULLING AT LINES, PULLING HEART LEADS AND BP CUFF OFF AND ATTEMPTING TO PULL REMAINING IV OUT. PT PLACED IN JOSE VEST AND BILATERAL SOFT WRIST RESTRAINTS. PT'S MENTATION IS DRASTICALLY ALTERED SINCE TRANSFER FROM ICU TO PCU. PT IS CONFUSED BELIEVING IT IS "October" AND THAT THE YEAR IS "1930". PT IS REDIRECTABLE BUT QUICKLY FORGETS AND CONTINUES PULLING/PICKING AT LINES. PT COMPLAINS OF BEING SHORT OF BREATH, AWAITING CT SCAN RESULTS. PT SATS IN MID 90'S ON 4L NC. LUNG SOUDS DIM T/O WITH AUDIBLE WHEEZING HEARD. PT FEBRILE AND DIAPHORETIC WITH TMAX 99.9. WILL REPORT TO ONCOMING NURSE.
--- NOTE | 2020-10-22 18:51 | NUR ---
Spiritual care note: Mr. Hernandez was pleasant, angaged well, but oftern had trouble tracking conversation. 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 He was uncertain as to why he is hospitalized. I provided prayer, encouragement, and affimration of love. I assisted him with a phone call to his . No concerns/fears presented other than wanting to go home. He did not appear lucid enough for code status conversation. He has POLST stating 'yes' to CPR with limited interventions. This is an approriate status. He does not want intubation. I will remain avaialble.
--- NOTE | 2020-10-22 18:59 | NUR ---
PT'S WALLET AND $1973 SENT WITH SEC[address]ITY [address] IN SAFE. ENVELOPE $027.
--- NOTE | 2020-10-22 19:45 | NUR ---
PATIENT ANGRY AND CONFUSED. PULLING AT RESTRAINTS AND ATTEMPTING TO GET OUT OF BED WITHOUT ASSISTANCE. JOSE AND BILAT WRIST RESTRAINTS IN PLACE. PATIENT HAVING CONFUSED CONVERSATION AND IS DIFFICULT TO UNDERSTAND AT TIMES. PATIENT INCONT OF A LARGE AMT OF URINE, BLADDER SCAN SHOWING 0 URINE POST VOID. ATTENDS IN PLACE AND PLAN TO ASK PATIENT FREQUENTLY TO SEE IF PATIENT WILL USE URINAL. BIOX 99% ON 4L/NC OXYGEN TITRATED DOWN TO 2L/NC. MONITOR SHOWING SINUS RHYTHM WITH OCCASIONAL PAC, NO LONGER AFIB. PATIENT BECOMING VERY ANGRY WHEN ASKED ORIENTATION QUESTIONS.
--- NOTE | 2020-10-22 21:00 | NUR ---
DOCTOR LAM NOTIFIED OF PATIENT RETURN TO ICU STATUS, AND PATIENTS CONFUSION AND DIFFICULTY WITH KEEPING PATIENT FROM PULLING LINES AND CORDS. ORDER OBTAINED FOR PRECEDEX IV TO HELP PATIENT RELAX.
--- NOTE | 2020-10-22 23:20 | NUR ---
PATIENT A LITTLE MORE COOPERATIVE, FOLLOWING SIMPLE DIRECTIONS. CONTINUES TO PULL AT LINES WHEN WRIST RESTRAINTS OFF. CONFUSED CONVERSATION CONTINUES. PRECEDEX 0.2 MCG
[2020-10-23 03:37] LABS: BASOPHILS ABSOLUTE AUTO 0.01 K/mm3 (0.00-0.23); BASOPHILS PERCENT AUTO 0 % (0-2); EOSINOPHILS ABSOLUTE AUTO 0.01 K/mm3 (0.00-0.68); EOSINOPHILS PERCENT AUTO 0 % (0-6); Hematocrit 27.7 % (37.0-53.0); Hemoglobin 9.3 g/dL (13.5-17.5); IMMATURE GRAN ABSOLUTE AUTO 0.06 K/mm3 (0.00-0.10); IMMATURE GRAN PERCENT AUTO 1 % (0-1); LYMPHOCYTES ABSOLUTE AUTO 0.86 K/mm3 (0.84-5.20); LYMPHOCYTES PERCENT AUTO 9 % (21-46); MONOCYTES ABSOLUTE AUTO 0.61 K/mm3 (0.16-1.47); MONOCYTES PERCENT AUTO 6 % (4-13); Mean Corpuscular HGB 35.5 pg (26.0-34.0); Mean Corpuscular HGB Conc 33.6 g/dL (31.5-36.5); Mean Corpuscular Volume 106 fL (80-100); Mean Platelet Volume 9.8 fL (9.1-12.4); NEUTROPHILS ABSOLUTE AUTO 8.08 K/mm3 (1.96-9.15); NEUTROPHILS PERCENT AUTO 84 % (41-73); Platelet Count 131 K/mm3 (150-400); RDW Coefficient Variation 14.7 % (11.7-14.2); Red Blood Cell Count 2.62 M/mm3 (4.30-5.90); White Blood Cell Count 9.63 K/mm3 (4.00-11.30)
[2020-10-23 04:11] LABS: Alanine Aminotransfer (ALT/SGP 12 U/L (12-78); Albumin, Blood 2.6 g/dL (3.4-5.0); Albumin/Globulin Ratio 0.8 (0.8-1.8); Alk Phos 52 U/L (50-136); Anion Gap 5 mmol/L (6-16); Aspartate Aminotrans (AST/SGOT 10 U/L (12-37); Bilirubin, Total 0.8 mg/dL (0.1-1.0); Blood Urea Nitrogen 12 mg/dL (8-24); Bun/Creatinine Ratio 15.2 (12.0-20.0); CO2, Blood 24 mmol/L (21-32); Calcium, Blood 8.2 mg/dL (8.5-10.1); Chloride, Blood 112 mmol/L (98-108); Creatinine, Blood 0.79 mg/dL (0.60-1.20); Globulin, Blood 3.3 g/dL (2.2-4.0); Glomerular Filtration Rate >60 (60-); Glucose, Blood 97 mg/dL (70-99); Potassium, Blood 3.2 mmol/L (3.5-5.5); Sodium, Blood 141 mmol/L (136-145); Total Protein, Blood 5.9 g/dL (6.4-8.2)
--- NOTE | 2020-10-23 06:27 | NUR ---
SUMMARY PATIENT RESTING QUIETLY AWAKENS TO VERBAL STIMULI. CONFUSION CONTINUES, BUT SPEECH CLEARER AND FOLLOWING SIMPLE DIRECTIONS. PRECEDEX 0.2 MCG INFUSING. ATTENDS IN PLACE DUE TO INCONTINENCE OF LARGE AMT OF URINE EARLY IN SHIFT. PATIENT DENIES URGE TO VOID AT THIS TIME. WHEN AWAKE PATIENT APPEARS SOB, BUT PATIENT DENIES FEELING SOB. FALLING BACK TO SLEEP AFTER TAKING PO WITHOUT DIFFICULTY. PATIENT FALLING BACK TO SLEEP WHEN UNDISTURBED.
--- NOTE | 2020-10-23 07:41 | NUR ---
ASSUMED CARE RECEIVED REPORT FROM DEBRA KHAN. PT IS SLEEPING IN BED, WITH 2L NC ON - SPO2 98%. HE IS IN SINUS GEM, RATE 48-50s. BP 143/71, 103. RR 22. JOSE AND SWB RESTRAINTS SECURE TO PT AND BED. PRECEDEX INFUSING AT 0.2 MCG/KG/HR. BED LOW AND LOCKED. CALL LIGHT WITHIN REACH.
[2020-10-23 08:29] LABS: Troponin I 0.055 ng/mL (0.000-0.040)
--- NOTE | 2020-10-23 13:02 | NUR ---
UPDATE AFTER THIS MORNING WHEN HE WOKE UP AGITATED, ATTEMPTING TO GET OUT OF BED, PULLING ON HIS RESTRAINTS, AND PULLING HIS PULSE OX OFF HIS FINGER - PRECEDEX WAS INCREASED TEMPORARILY - PT HAD THEN SLEPT FOR A FEW HOURS. RESPIRATORY- THOMPSON HE WAS DOING OKAY - 2L NC, SPO2 HIGH 90s%. THOUGH SOME SOB SEEN WITH EXERTION. PT THEN WOKE UP JUST BEFORE LUNCH TIME, AND WHEN HIS SWB RESTRAINTS WERE REMOVED - HE WAS COOPERATIVE WORKING WITH SPEECH THERAPY AND DID VERY WELL (SILVANO STATED THAT HE WAS DOING WELL, AND THE SAME RULES APPLY THAT THEY HAD MADE YESTERDAY - EARLIER IN THE DAY THAT IS). PT SWALLOWING WATER FINE, AND TOOK PO MEDS WITHOUT ANY DIFFICULTY. PT RECEIVED AN ECHO (NOTHING SIGNIFICANT SEEN REPORTED FROM THE TECH UNOFFICIALLY) AND CURRENTLY IS SLEEPING. WILL CONTINUE TO MONITOR. MADE EARLIER IN THE DAY YESTERDAY
--- NOTE | 2020-10-23 13:09 | NUR ---
Echocardiogram completed.
--- NOTE | 2020-10-23 15:08 | NUR ---
10/23/20- PER CHART REVIEW WITH DR. ONEIL, PT HAS MOVED BACK TO ICU IN THE MIDDLE OF THE NIGHT. PT HAS AN INCREASE IN CONFUSION AND WILL NEED HELP WITH MEDICATION MANAGEMENT AT D/C. NO PLAN FOR D/C AT THIS TIME. -RACHEAL
--- NOTE | 2020-10-23 17:20 | NUR ---
UPDATE PT OFF PRECEDEX SINCE 1429, ORIENTED TO SELF, PLACE, YEAR, FAMILY BUT NOT FULLY UNDERSTANDING HIS SITUATION HE IS IN. CONTINUES TO BE STABLE ON 2L NC, SPO2 94%+. ONLY DESATing ONCE WHEN THE NC FELL OUT OF HIS NOSE, HE BECAME SOB BUT RECOVERED WELL WHEN NC FIXED. PT NOT HAVING GREAT INTAKE - BUT AFTER ST THERAPY APPROVED HIS SWALLOW - HE HAD SOME PUDDING, SOME WATER, AND DECAF COFFEE - WHICH HE DID WELL. HE HAS BEEN SLEEPY DESPITE BEING OFF PRECEDEX T/O THE DAY, BUT WAKES UP SPONTANEOUSLY. PT FORGETS TO ASK FOR THE URINAL, SO IF HE IS ASKED FREQUENTLY HE CAN USE THE URINAL AT TIMES. ATTENDS IN PLACE. CALL LIGHT WITHIN REACH. BED LOW AND LOCKED. , SON, RAFI, AND KALEY (SLOT MACHINE DEPARTMENT FLOORPERSON, AND CAREGIVER) HAVE BEEN UPDATED TODAY. HAS DEMENTIA. AND PT TALKED ON PHONE TODAY AND HAD A PLEASANT CONVERSATION.
--- NOTE | 2020-10-23 18:00 | NUR ---
EDUCATION SON, RAFI (RETAIL DEPARTMENT MANAGER), AND KALEY (CAREGIVER) WERE GIVEN UPDATES ALONG WITH THE SPOUSE: LONNIE. EVERYONE WAS RECEPTIVE TO THE INFORMATION, AND ASKED QUESTIONS. IT IS A SHARED CONCERN REGARDING WHAT WILL NEED TO HAPPEN AFTER HIS ADMISSION (SNF, REHAB, ETC...), THEY ARE CONCERNED THE PT WILL NOT TOLERATE BEING HOME WITHOUT 24 HOUR CARE WELL. THIS RN WAS TOLD THAT THE , LONNIE, HAS DEMENTIA AND WHEN SPEAKING TO HER ON THE PHONE SHE MOSTLY SEEMED APPROPRIATE, BUT SHE WAS ALSO SAYING CONFUSING STATEMENTS. AT THE END OF THE PHONE CALL SHE SAID SHE UNDERSTOOD, AND THANKED ME. HOWEVER, LATER ON SHE STATED THAT NO ONE FROM THE HOSPITAL HAD TALKED TO HER. IT IS UNSURE HOW MUCH AWARENESS SHE HAS OF THIS SITUATION. SON LIVES IN [place] AND IS CONSIDERING FLYING TO [place] TO SEE PARENTS. KALEY HAS TOLD US THAT SHE HAS VISITED THE AND HAS BEEN CHECKING IN ON HER (KALEY IS THE CAREGIVER/NEIGHBOR).
--- NOTE | 2020-10-23 18:38 | NUR ---
UPDATE PT TOOK A BIT OF HIS DINNER AND STARTED COUGHING SHORTLY AFTER. NO CHANGE IN VOICE BUT HE CONTINUED TO COUGH. AFTER A FEW MINUTS OF INTRMITTENT COUGHING PT STARTING HAVING WHAT APPEARED TO BE SMALL RUNS OF VT, OR RUNS OF AFIB. PT THEN ENTERED INTO AFIB RATE 130-140s. BP STABLE, MAP >65; BUT HE DID COMPLAIN OF BEING UNCOMFORTABLE AND HAVING CHEST PAIN, THAT IT WAS "RACING". DR. ONEIL CALLED AND INSTRUCTED TO HAVE HIM TRY VALSALVA, BY HAVING HIM COUGH, AND IF THAT DIDN'T WORK TO GIVE A CARDIZEM IVP. BOTH TRIED. PT REMAINS IN AFIB, RAT 120-130s; BP REMAINS STABLE, AND PT STATES "IT ISN'T BAD". WILL CONTINUE TO MONITOR. SPO2 95% ON 2L NC. RR 22.
--- NOTE | 2020-10-23 19:30 | NUR ---
UPDATE PT DENYING CHEST DISCOMFORT, BUT COMPLAINING OF BACK SORENESS. BP STABLE, MAP > 65. PT REMAINS IN AFIB RVR, RATE 120-150. CALLED DR. HALE (HOSPITALIST) - SHE INSTRUCTED TO START PT ON CARDIZEM GTTP AT 5 MG/HR, AND TO TITRATE FOR HR < 110; AND TO BE CALLED IF PT STARTS TO HAVE BLOOD PRESSURE ISSUES. ORDER ENTERED IN, REPORTED OFF TO DEBRA KHAN.
--- NOTE | 2020-10-23 20:54 | NUR ---
PATIENT RESTING IN BED DEPUTY ASSESSOR WAS SHOWING AFIB WITH RVR WITH RATE UP TO 150'S CARDIZEM IV STARTED AT 5 MG/HR PATIENT NOW IN SINUS WITH OCCASIONAL PVC RATE 57. PATIENT WAS C/O LOW BACK PAIN, RELIEVED WITH TYLENOL PO. PATIENT NOW SLEEPING WHEN UNDISTURBED WITH OXYGEN 3L/NC IN PLACE.
[2020-10-23 21:06] LABS: Magnesium, Blood 1.9 mg/dL (1.6-2.4); Potassium, Blood 3.7 mmol/L (3.5-5.5)
--- NOTE | 2020-10-23 23:30 | NUR ---
CARDIZEM DRIP OFF AT 2300 DUE TO HYPOTENSION AND HEART RATE 50'S SINUS RHYTHM
[2020-10-24 03:42] LABS: BASOPHILS ABSOLUTE AUTO 0.02 K/mm3 (0.00-0.23); BASOPHILS PERCENT AUTO 0 % (0-2); EOSINOPHILS ABSOLUTE AUTO 0.13 K/mm3 (0.00-0.68); EOSINOPHILS PERCENT AUTO 2 % (0-6); Hematocrit 28.4 % (37.0-53.0); Hemoglobin 9.4 g/dL (13.5-17.5); IMMATURE GRAN ABSOLUTE AUTO 0.06 K/mm3 (0.00-0.10); IMMATURE GRAN PERCENT AUTO 1 % (0-1); LYMPHOCYTES ABSOLUTE AUTO 1.01 K/mm3 (0.84-5.20); LYMPHOCYTES PERCENT AUTO 14 % (21-46); MONOCYTES ABSOLUTE AUTO 0.44 K/mm3 (0.16-1.47); MONOCYTES PERCENT AUTO 6 % (4-13); Mean Corpuscular HGB 35.6 pg (26.0-34.0); Mean Corpuscular HGB Conc 33.1 g/dL (31.5-36.5); Mean Corpuscular Volume 108 fL (80-100); NEUTROPHILS ABSOLUTE AUTO 5.37 K/mm3 (1.96-9.15); NEUTROPHILS PERCENT AUTO 76 % (41-73); Platelet Count 153 K/mm3 (150-400); RDW Coefficient Variation 14.7 % (11.7-14.2); RDW Standard Deviation 58.3 fL (35.1-46.3); Red Blood Cell Count 2.64 M/mm3 (4.30-5.90); White Blood Cell Count 7.03 K/mm3 (4.00-11.30)
[2020-10-24 04:38] LABS: Alanine Aminotransfer (ALT/SGP 9 U/L (12-78); Albumin, Blood 2.3 g/dL (3.4-5.0); Albumin/Globulin Ratio 0.7 (0.8-1.8); Alk Phos 53 U/L (50-136); Anion Gap 5 mmol/L (6-16); Aspartate Aminotrans (AST/SGOT 13 U/L (12-37); Bilirubin, Total 0.6 mg/dL (0.1-1.0); Blood Urea Nitrogen 14 mg/dL (8-24); Bun/Creatinine Ratio 16.9 (12.0-20.0); CO2, Blood 24 mmol/L (21-32); Calcium, Blood 8.6 mg/dL (8.5-10.1); Chloride, Blood 112 mmol/L (98-108); Creatinine, Blood 0.83 mg/dL (0.60-1.20); Globulin, Blood 3.3 g/dL (2.2-4.0); Glomerular Filtration Rate >60 (60-); Glucose, Blood 79 mg/dL (70-99); Potassium, Blood 3.4 mmol/L (3.5-5.5); Sodium, Blood 141 mmol/L (136-145); Total Protein, Blood 5.6 g/dL (6.4-8.2)
--- NOTE | 2020-10-24 06:47 | NUR ---
SUMMARY PATIENT AWAKE AND MORE APPROPRIATE THIS MORNING, USING CALL LIGHT A FEW TIMES DURING THE NIGHT, MOSTLY JUST YELLING OUT FOR ASSISTANCE. PATIENT UP TO CHAIR WITH 2L/NC IN PLACE, PATIENT VERY SOB WITH THE ACTIVITY OF GETTING UP AND TRANSFERRING TO THE CHAIR. PATIENT REMAINS IN SINUS RHYTHM CARDIZEM DRIP REMAINS OFF.
--- NOTE | 2020-10-24 13:45 | NUR ---
10/24/20- per chart review with Dr. Soto, pt will need a total of 10 days of IV abx and he currently is on day 5. Plan is to keep pt until Abx is completed. -vic
--- NOTE | 2020-10-24 15:59 | NUR ---
PT CALLED OUT TO STAFF INSTEAD OF USING CALL LIGHT. PT REQUESTED TO MVOE FROM RECLINER TO HIS BED. THIS STUDENT RN ASSISTED PT TO HIS BED USING GAIT BELT AND WALKER, PT WAS UNSTEADY ON HIS FEET. ONCE PT WAS IN BED, PT WAS SOB. THIS STUDENT RN APPLIED THE JOSE RESTRAINT TO BED WITH ASSISTANCE OF BRENNEN RN. PT WAS REMINDED ABOUT USING THE CALL LIGHT WHEN NEEDING ASSISTANCE, PT VERBALIZED UNDERSTANDING.
--- NOTE | 2020-10-24 17:06 | NUR ---
PT TRANSFER/SHIFT SUMMARY PT REPORT GIVEN TO IRASEMA RICHARDSON. PT TRANFERED TO PCU 1 VIA WHEELCHAIR. 2100 SEROQUEL MEDICATION SENT IN BAG WITH PT. VSS. 2 SATS 99% ON 1.5L NC. PT A/O X3, THOUGHT HE WAS AT THE [facility]. VSS THROUGHOUT SHIFT. O2 SATS >96% ON 2L NC. PT WAS UP TO RELCINER AND BEDSIDE COMMODE, C/O SOB WHEN RETURNING TO BED OR RECLINER. PT WOULD CALL OUT TO STAFF INSTEAD OF USING CALL LIGHT, REMINDED PT TO USE CALL LGHT FOR ASSISTANCE, PT VERBALIZED UNDERSTANDING. PT WORKED WITH PHYSICAL THERAPY AND OCCUPATIONAL THERAPY. JOSE VEST AND BED ALARM IN PLACE THROUGHOUT SHIFT.
--- NOTE | 2020-10-24 18:39 | NUR ---
SHIFT SUMMARY FRANCO ARRIVED FROM ICU AT 1720, VSS. INCONT URINE, BED CHANGE. DECLINED DINNER. JOSE INTACT. TELE SHOWING NSR. AWAITING STOOL TO SEND STOOL SAMPLE. CALL LIGHT IN REACH, TM
--- NOTE | 2020-10-24 21:07 | NUR ---
TRIALING JOSE RESTRAINT REMOVAL @ 2029. PATIENT CALM, APPROPRIATE, FOLLOWING COMMANDS AND AGREEABLE TO APPROPRIATE BEHAVIOR. FALL PRECAUTIONS IN PLACE AND CLOSE TO NURSE STATION. WILL CONTINUE TO MONITOR.
[2020-10-24 22:21] LABS: Vancomycin, Trough 15.9 ug/mL (5.0-10.0)
--- NOTE | 2020-10-25 00:38 | NUR ---
NOTIFIED OF PATIENT CONVERTING BACK TO AFIB UNCONTROLLED UP TO 190. LOPRESSOR 5MGX2 ORDERED AND GIVEN WITH NO SIGNIFICANT CHANGE. HR NOW 154. PATIENT STATES FLUTTERING IN CHEST. PRN HALDOL AND TYLENOL ALSO GIVEN TO MAKE MORE COMFORTABLE. VSS. WILL CONTINUE TO MONITOR.
--- NOTE | 2020-10-25 03:55 | NUR ---
PATIENT CONVERTED BACK TO NSR AT APPROXIMETLY 0115 AFTER 2ND DOSE OF LOPRESSOR GIVEN. NOW NSR IN 70'S. VSS. UNABLE TO CONTINUE WITH RESTRAINT OFF PATIENT GOT VERY AGITATED WHEN HR WAS HIGH. REMOVED IV AND WAS TRYING TO LEAVE HOSPITAL.WILL KEEP JOSE IN PLACE UNTIL LISTENING TO DIRECTIONS MORE. RESTING COMFORTABLY AT THIS TIME. FALL PRECAUTIONS IN PLACE.WILL CONTINUE TO MONITOR.
[2020-10-25 05:21] LABS: BASOPHILS ABSOLUTE AUTO 0.03 K/mm3 (0.00-0.23); BASOPHILS PERCENT AUTO 0 % (0-2); EOSINOPHILS ABSOLUTE AUTO 0.18 K/mm3 (0.00-0.68); EOSINOPHILS PERCENT AUTO 3 % (0-6); Hemoglobin 9.9 g/dL (13.5-17.5); IMMATURE GRAN ABSOLUTE AUTO 0.07 K/mm3 (0.00-0.10); IMMATURE GRAN PERCENT AUTO 1 % (0-1); LYMPHOCYTES ABSOLUTE AUTO 1.03 K/mm3 (0.84-5.20); LYMPHOCYTES PERCENT AUTO 14 % (21-46); MONOCYTES ABSOLUTE AUTO 0.51 K/mm3 (0.16-1.47); MONOCYTES PERCENT AUTO 7 % (4-13); Mean Corpuscular HGB 35.5 pg (26.0-34.0); Mean Corpuscular Volume 108 fL (80-100); Mean Platelet Volume 10.2 fL (9.1-12.4); NEUTROPHILS ABSOLUTE AUTO 5.36 K/mm3 (1.96-9.15); NEUTROPHILS PERCENT AUTO 75 % (41-73); Platelet Count 178 K/mm3 (150-400); RDW Coefficient Variation 14.7 % (11.7-14.2); RDW Standard Deviation 58.7 fL (35.1-46.3); Red Blood Cell Count 2.79 M/mm3 (4.30-5.90); White Blood Cell Count 7.18 K/mm3 (4.00-11.30)
--- NOTE | 2020-10-25 05:31 | NUR ---
*SHIFT SUMMARY PATIENT FOUND TO BE HAVE DEMENTIA WHO IS A&OX3, GRAJEDA, AND FOLLOWING MOST COMMANDS UPON ASSESSMENT. PLEASANTLY CONFUSED AT START OF SHIFT BUT BECAME AGITATED WITH INCREASED HR AND WAS HARD TO REDIRECT. JOSE BELT KEPT IN PLACE TO MAINTAIN PATIENT SAFETY. HALDOL Q6H PRN WITH LITTLE EFFECT. DISTRACTION WORKS THE BEST. MOVES SELF WELL IN BED. VSS. NSR TO START THEN AFIB FOR ONE HOUR JUST AFTER MIDNIGHT. SEE PREVIOUS NOTE FOR DETAILS. NSR SINCE CONVERSION. ON 2L NC. IV ABX INFUSING PER ORDER. FULL FEED AND POOR APPETITE. ENCOURAGING ORAL INTAKE. FREQUENT URINATION PER URINAL AND URGENCY NOTED. NO ACUTE CONCERNS AT THIS TIME. WILL CONTINUE TO MONITOR.
[2020-10-25 05:49] LABS: Alanine Aminotransfer (ALT/SGP 10 U/L (12-78); Albumin, Blood 2.1 g/dL (3.4-5.0); Albumin/Globulin Ratio 0.6 (0.8-1.8); Alk Phos 53 U/L (50-136); Anion Gap 5 mmol/L (6-16); Aspartate Aminotrans (AST/SGOT 17 U/L (12-37); Bilirubin, Total 0.5 mg/dL (0.1-1.0); Blood Urea Nitrogen 8 mg/dL (8-24); Bun/Creatinine Ratio 10.2 (12.0-20.0); CO2, Blood 25 mmol/L (21-32); Calcium, Blood 8.3 mg/dL (8.5-10.1); Chloride, Blood 113 mmol/L (98-108); Creatinine, Blood 0.79 mg/dL (0.60-1.20); Globulin, Blood 3.5 g/dL (2.2-4.0); Glomerular Filtration Rate >60 (60-); Glucose, Blood 108 mg/dL (70-99); Potassium, Blood 3.1 mmol/L (3.5-5.5); Sodium, Blood 143 mmol/L (136-145); Total Protein, Blood 5.6 g/dL (6.4-8.2)
--- NOTE | 2020-10-25 11:03 | NUR ---
PT ALERT TO SELF, PLACE, SITUATION AND FAMILY. UNABLE TO STATE CORRECT DATE AND TIME. FORGETFUL AND ASKING REPETATIVE QUESTIONS. CALM IN NATURE AND COOPERATIVE WITH CARES. SLEEPING ON AND OFF IN BED. JOSE VEST IN PLACE FOR CONFUSION, FALL RISK AND ATTEMPTS AT TRYING TO LEAVE BED. VITAL SIGNS STABLE. ON ROOM AIR SATING AT 94%. DENIES CHEST PAIN/PRESSURE. TELE SHOWING SINUS GEM WITH HR 58. OBSERVED WEAKNESS WHEN MOVING FROM BED TO CHAIR. LUNG SOUNDING CLEAR WITH DIMINISHED BASES. BOWEL TONES PRESENT. USING URINAL WITH FREQUENCY AND URGENCY, ATTENDS IN PLACE. POTASSIUM PHOSTPHATE AND ANTIBIOTICS INFUSING. RIGHT UPPER ARM IV. PATIENT ABLE TO CALL AND TALK WITH THIS AM. CALL LIGHT IN REACH. ALARMS ON FOR SAFETY. WILL CONTINUE TO MONITOR.
--- NOTE | 2020-10-25 11:26 | NUR ---
TRANSFER TO MEDICAL: REPORT GIVEN TO NURSE. PT TAKEN WITH BELONGINGS TO ROOM 345 VIA WHEELCHAIR. SEE PREVIOUS NOTES FOR UPDATES.
--- NOTE | 2020-10-25 16:51 | NUR ---
SHIFT SUMMARY- PT IS ALERT, PLESANT AND INTERMITENTLY CONFUSED. HE IS EATING AND DRINKING WELL. HE TRANSFRED FROM PCU THIS AFTERNOON. HE IS RECIEVING IV ABX. HE WORKED WITH PT THIS AFTERNOON AND TOLERATED WELL. HE WAS UP TO THE CHAIR THIS AFTERNOON. HE IS USING THE URINAL. HIS BED IS IN THE LOW POSITION AND CALL LIGHT IS WITHIN REACH.
--- NOTE | 2020-10-25 22:00 | NUR ---
ASSUMED CARE. AOX3 BUT VERY FORGETFUL ALL THE TIME. HAS REPETATIVE SPEECH, REPEATING QUESTIONS. LUNGS DIMINISHED IN THE BASES. OCCATIONAL COUGH. NO PAIN. DENIES PAIN. VSS/AFEBRILE. ASSISTED TO BED, WEAK. URINE YELLOW/ORANGE. WANTS O2 ON EVEN THOUGH SATS ARE GOOD. MEDS GIVEN. USES URINAL WELL. CALL LIGHT AND BED ALARM ARE ON. WILL CONTINUE TO MONITOR.
[2020-10-25 22:18] LABS: Vancomycin, Trough 16.9 ug/mL (5.0-10.0)
[2020-10-26 05:12] LABS: Anion Gap 5 mmol/L (6-16); Blood Urea Nitrogen 8 mg/dL (8-24); Bun/Creatinine Ratio 9.1 (12.0-20.0); CO2, Blood 29 mmol/L (21-32); Calcium, Blood 8.6 mg/dL (8.5-10.1); Chloride, Blood 110 mmol/L (98-108); Creatinine, Blood 0.88 mg/dL (0.60-1.20); Glomerular Filtration Rate >60 (60-); Glucose, Blood 108 mg/dL (70-99); Potassium, Blood 2.9 mmol/L (3.5-5.5); Sodium, Blood 144 mmol/L (136-145)
--- NOTE | 2020-10-26 05:21 | NUR ---
SHIFT SUMMARY: AOX2, VERY FORGETFUL WITH SUNDOWNERS. ATTEMPTED TO LEAVE SEVERAL TIMES LAST NIGHT. STATES HE IS HAVING PEOPLE COME PICK HIM UP IN THE AFTERNOON. DENIES PAIN. CONTENTIENT OF URINE, USING URINAL. LUNGS DIMINISHED IN BASES. COUGH IS OCCATIONAL. FEELS HE IS SOB ALL THE TIME ASKING IF CAN HAVE O2 VIA NC ON. SATS REMAIN ABOVE 95%. IV ANTIBOTICS GIVEN. VSS/AFEBRILE. WILL CONTINUE TO MONITOR. CALL LIGHT IS IN REACH. CHAIR ALARM IS ON.
--- NOTE | 2020-10-26 12:58 | NUR ---
10/26/20- per chart review with Dr. Montejo, pt not stable to discharge. No plan to d/c, will be staying through the weekend. -vic
--- NOTE | 2020-10-26 16:32 | NUR ---
SHIFT SUMMARY- PT IS ALERT, PLESANT AND COOPERATIVE. HIS APPETITE IS POOR. HE WORKED WITH PT THIS AFTERNOON AND AMBULATED IN THE HALLWAY. SPOKE WITH HIS SON ON THE PHONE AND HIS CAREGIVER CAME THIS AFTERNOON. HE WILL BE STAYING THIS WEEKEND TO RECIEVE IV ABX. HE NEEDED TO BE REORIENTED ABOUT STAYING IN THE HOSPITAL. HE IS CURRENTLY IN THE CHAIR WITH HIS CALL LIGHT IN REACH.
--- NOTE | 2020-10-26 19:25 | NUR ---
ASSUMED CARE. FRANCO IS AOX2, FORGETFUL. ASKING TO BE DONE WITH IV POTASSIUM, STATES IT IS BURNING. INCREASED NS TO HELP EASE. HE STILL THINKS HE IS GOING HOME. TALKED ABOUT THE NEED TO STAY. LUNG SOUNDS DIMINISHED, NO COUGH. NO PAIN. VSS, AFEBRILE. WILL CONTINUE TO MONITOR. CALL LIGHT IN REACH.
--- NOTE | 2020-10-26 21:51 | NUR ---
VERY CONFUSED, FREQUENT URINATION CAUSING HIM TO CONSTANTLY CLIMB OUT OF BED. EXCEPT HE CONTINUES TO MISS THE BOTTLE AND URINATES ON THE FLOOR, CAUSING FALL RISK. PLACED ON CAMERA DUE TO HIM GETTING UP SEVERAL TIMES BEFORE WE ARE ABLE TO GET THERE. DOES NOT REMEMBER THAT HE USED THE URINAL IN THE BED LAST NIGHT ON HIS OWN AND USED THE CALL LIGHT. TONIGHT HE IS OPPOSITE, NOT REMEMBER TO CALL AND STATES HE CAN'T USING THE URINAL IN BED. BED ALARM IS ON. CALL LIGHT IS IN REACH. WILL CONTINUE TO MONITOR.
[2020-10-27 05:13] LABS: Anion Gap 4 mmol/L (6-16); Blood Urea Nitrogen 7 mg/dL (8-24); Bun/Creatinine Ratio 8.4 (12.0-20.0); CO2, Blood 27 mmol/L (21-32); Calcium, Blood 8.6 mg/dL (8.5-10.1); Chloride, Blood 109 mmol/L (98-108); Creatinine, Blood 0.83 mg/dL (0.60-1.20); Glomerular Filtration Rate >60 (60-); Glucose, Blood 105 mg/dL (70-99); Potassium, Blood 3.2 mmol/L (3.5-5.5); Sodium, Blood 140 mmol/L (136-145)
--- NOTE | 2020-10-27 06:09 | NUR ---
SHIFT SUMMARY: CONFUSED, CONSTANTLY GETTING UP AND DOWN, FREQUENT URINATION. IV ANTIBOTICS Q 6 HRS. DIFFICULTY UNDERSTANDING DIRECTIONS T/O THE NIGHT. VERY FORGETFUL. VSS/AFEBRILE. DID COMPLAIN OF SOB AND DIFFICULTY BREATHING. LUNGS WERE CLEAR, SLIGHT WHEEZING. O2 WAS PLACED, THIS HELPED HIM RELAX TO THE POINT HE FINALLY WENT TO SLEEP. BED ALARM, CHAIR ALARM. CALL LIGHT IN REACH.
[2020-10-27 10:28] LABS: Vancomycin, Trough 18.1 ug/mL (5.0-10.0)
--- NOTE | 2020-10-27 17:59 | NUR ---
PT AOX3 WITH CONFUSION. PT HAS BEEN UP IN CHAIR HE IS MORE COMFORTABLE. PT CAN USE CALL LIGHT AT TIMES, BUT THEN CALLS OUT A LOT. PT ALSO SEEMS TO GET UPSET IF HIS REQUEST ARE NOT IMMEDIATE. PT HAS HAD IV POTASIUM GOING ALL DAY AND IV ANTIBOTICS IN BETWEEN HE IS NOT TOLERATING IV POTASIUM AND IT HAS TO GO IN MUCH SLOWER DUE TO PAIN. PT EATING WELL HAS CALL LIGHT IN REACH CHAIR ALARM SET. WILL CONTINUE TO MONITOR.
[2020-10-28 05:08] LABS: Anion Gap 4 mmol/L (6-16); Blood Urea Nitrogen 9 mg/dL (8-24); Bun/Creatinine Ratio 10.1 (12.0-20.0); CO2, Blood 27 mmol/L (21-32); Calcium, Blood 8.6 mg/dL (8.5-10.1); Chloride, Blood 110 mmol/L (98-108); Creatinine, Blood 0.89 mg/dL (0.60-1.20); Glomerular Filtration Rate >60 (60-); Glucose, Blood 111 mg/dL (70-99); Potassium, Blood 3.6 mmol/L (3.5-5.5); Sodium, Blood 141 mmol/L (136-145)
--- NOTE | 2020-10-28 05:12 | NUR ---
[id number] SUMMARY: PATIENT IS A&O TO SELF, PLACE WITH SOME DATE CONFUSION. CONTINUES TO REQUIRE 2L NC TO MAINTAIN SATS AT 97% NEEDS ASSISTANCE WITH THE URINAL. PATIENTIS INC. OF URINE AT TIMES.
--- NOTE | 2020-10-28 17:14 | NUR ---
PT AOX3 WITH CONFUSION. PT HAS BEEN A ONE PERSON ASSIST. PT WOULD LIKE TO GO HOME, BUT SEEMS OKAY WHEN HE IS TOLD HE NEEDS IV ANTIBOITCS. PT CAN BE IMPULSIVE TO STAND. BED AND CHAIR ALARMS IN PLACE. PT HAS CALL LIGHT WITHIN REACH WILL CONTINUE TO MONITOR.
--- NOTE | 2020-10-29 05:08 | NUR ---
SHIFT SUMMARY: NO ACUTE CHANGES. PATIENT CONTINUES TO HAVE URGENCY AND FREQUENT VOIDS. RESPIRATORY STATUS IS IMPROVED FROM LAST EMAIL DEVELOPER.BED ALARM IS ON FOR SAFETY. PATIENT IS VERY UNSTEADY ON HIS FEET.
[2020-10-29 05:35] LABS: Anion Gap 3 mmol/L (6-16); Blood Urea Nitrogen 11 mg/dL (8-24); Bun/Creatinine Ratio 12.1 (12.0-20.0); CO2, Blood 28 mmol/L (21-32); Calcium, Blood 8.6 mg/dL (8.5-10.1); Chloride, Blood 110 mmol/L (98-108); Creatinine, Blood 0.91 mg/dL (0.60-1.20); Glomerular Filtration Rate >60 (60-); Glucose, Blood 96 mg/dL (70-99); Potassium, Blood 3.8 mmol/L (3.5-5.5); Sodium, Blood 141 mmol/L (136-145)
--- NOTE | 2020-10-29 16:58 | NUR ---
PT IS A/O X3, HAS SOME CONFUSION AND STATES HE WANTS TO GO HOME. PT DENIES ANY SOB OR CHESTPAIN AT THIS TIME. PT IS ON 2 L VIA NC AND SATTING IN THE HIGH 90'S. PT IS CONTINENT/INCONTINENT AND HAS SOME URGENCY AND FREQUENCY WITH URINATION. PT IS A ONE PERSON ASSIST, HAS A WEAK GAIT BUT WILL USE THE BSC. PT IS ON A SOFT CONSISTENCY DIET, AND TOLERATING IT WELL. VSS, PT IS UP IN RECLINER WITH CHAIR ALARM ON, AND CALL LIGHT IN REACH.
--- NOTE | 2020-10-30 03:36 | NUR ---
SUMMARY: PT A/OX3 BUT IS IMPULSIVE AND FORGETFULL AT TIMES W/BED ALARM ON FOR FALL RISK. HE'S 1PA OOB W/FWW USED FOR MOBILITY. HE'S CONT/INCONT AND USES URINAL FOR URINARY FREQUENCY W/URGENCY. HE REMAINS ON 2L O2 W/SPO2 WNL AND L.LOBE LS ARE SLIGHTLY COARSE, NO DYSPNEA OR SOB OBSERVED. IV ABX RECIEVED THEN SL. PT TOLERATES SOFT DIET AND PILLS WHOLE W/WATER. STAFF UNABLE TO COLLECT GUAIAC D/T NO BM THIS SHIFT. NO ACUTE CHANGES, VSS/AFEBRILE. HE DENIES PAIN AND ALL OTHER COMPLAINTS. WCTM AND REPORT TO DAY RN.
[2020-10-30 10:22] LABS: Vancomycin, Trough 20.3 ug/mL (5.0-10.0)
--- NOTE | 2020-10-30 16:02 | NUR ---
PT IS A/O TO SELF, PLACE, AND SURROUNDINGS, THE PT IS COOPERATIVE, THE PT CAN BECOME IRRIATBLE AT TIMES STATING THAT HE IS READY BE RELEASED AND GO HOME, KEEPS ASKING IF I HAVE SEEN THE DOCTOR YET. DR. ATKINS HAS ROUNDED ON THE PT ALREADY THIS AM, THE PT HAS BEEN UP SEVERAL TIMES AMBULATING IN THE SCHNEIDER WITH MINIMAL ASSIST USEING THE FWW. THE PT [id number] TO BE BREATHING EASILY ON RA AT THIS TIME, THE PT WAS ON O2 THIS AM FOR HIS REASURANCE ONLY, CALL LIGHT IN REACH, WILL CONTINUE TO MONITOR AND ASSESS FOR CHANGES
--- NOTE | 2020-10-31 02:50 | NUR ---
PT C/O OF CHEST PAIN AT 219 THAT HE DESCRIBED "GOING ACROSS THE CHEST". HE WAS SITTING HUNCHED FORWARD AND STATED PAIN WORSENED WHEN LEANING BACK. HE DENIED NAUSEA, SOB, DYSPNEA AND ALL OTHER S/S CARDIAC DISTRESS. PT WAS HYPERTENSIVE AND TACHYCARDIC AT THIS TIME: BP 163/97 AND HR WAS 80'S-150'S AND NOTED TO AVERAGE A SUSTAINED HR OF 120'S-130'S. PT HAS HX OF AFIB BUT WASN'T ON TELEMETRY. HE WEARS 2L O2 AD SONIA FOR COMFORT BUT WAS ON RA SO O2 WAS REPLACED. MANAGER PAID ALERTED OF NEED FOR EKG W/ORDER OBTAINED. SYMPTOMS RESOLVED WITHIN A FEW MINUTES OF O2 BEING APPLIED AND JUST PRIOR TO EKG COMPLETION AT 228. RESULTS AND EVENT SHARED W/ W/NO NEW ORDERS RECIEVED. HE'S BEEN RESTING COMFORTABLY W/O FURTHER S/S DISTRESS SINCE.
--- NOTE | 2020-10-31 04:05 | NUR ---
SUMMARY: PT A/O TO SELF, PLACE AND SURROUNDINGS BUT FORGETFULL AT TIMES AND IMPULSIVE W/BED ALARM ON. PT REQUESTS ASSITANCE W/URINAL AND HAS URGENCY W/FREQUENCY FOR SMALL VOIDS. STAFF UNABLE TO COLLECT STOOL SPECIMEN D/T NO BM THIS SHIFT. HE HAD X1 EPISODE CP W/ACCOMPANYING HTN AND TACHYCARDIA BUT DENIED ALL OTHER S/S CARDIAC DISTRESS. O2 WAS REPLACED FOR COMFORT AND SYMPTOMS RESOLVED. EKG COMPLETED AND MD AWARE OF RESULTS W/NO NEW ODERS RECIEVED. HE DENIED ALL OTHER COMPLAINTS T/O NOCTE. VSS/AFEBRILE SINCE AND NO ACUTE CHANGES. IV ABX RECIEVED THEN SL. KEY AND REPORT TO DAY RN.
[2020-10-31 05:27] LABS: BASOPHILS ABSOLUTE AUTO 0.05 K/mm3 (0.00-0.23); BASOPHILS PERCENT AUTO 1 % (0-2); EOSINOPHILS ABSOLUTE AUTO 0.35 K/mm3 (0.00-0.68); EOSINOPHILS PERCENT AUTO 4 % (0-6); Hematocrit 33.7 % (37.0-53.0); Hemoglobin 11.2 g/dL (13.5-17.5); IMMATURE GRAN ABSOLUTE AUTO 0.06 K/mm3 (0.00-0.10); IMMATURE GRAN PERCENT AUTO 1 % (0-1); LYMPHOCYTES ABSOLUTE AUTO 1.64 K/mm3 (0.84-5.20); LYMPHOCYTES PERCENT AUTO 18 % (21-46); MONOCYTES ABSOLUTE AUTO 0.76 K/mm3 (0.16-1.47); MONOCYTES PERCENT AUTO 8 % (4-13); Mean Corpuscular HGB 35.4 pg (26.0-34.0); Mean Corpuscular HGB Conc 33.2 g/dL (31.5-36.5); Mean Corpuscular Volume 107 fL (80-100); Mean Platelet Volume 9.9 fL (9.1-12.4); NEUTROPHILS ABSOLUTE AUTO 6.34 K/mm3 (1.96-9.15); NEUTROPHILS PERCENT AUTO 69 % (41-73); Platelet Count 325 K/mm3 (150-400); RDW Coefficient Variation 14.6 % (11.7-14.2); RDW Standard Deviation 57.7 fL (35.1-46.3); Red Blood Cell Count 3.16 M/mm3 (4.30-5.90)
[2020-10-31 05:56] LABS: Anion Gap 3 mmol/L (6-16); Blood Urea Nitrogen 12 mg/dL (8-24); Bun/Creatinine Ratio 12.4 (12.0-20.0); CO2, Blood 29 mmol/L (21-32); Calcium, Blood 8.9 mg/dL (8.5-10.1); Chloride, Blood 110 mmol/L (98-108); Creatinine, Blood 0.97 mg/dL (0.60-1.20); Glomerular Filtration Rate >60 (60-); Glucose, Blood 106 mg/dL (70-99); Potassium, Blood 3.6 mmol/L (3.5-5.5); Sodium, Blood 142 mmol/L (136-145)
--- NOTE | 2020-10-31 10:48 | NUR ---
IV PLACEMENT: PATIENT HAS A PIV IN HIS LEFT AC. IT IS PATENT AND WNL.
--- NOTE | 2020-10-31 15:30 | NUR ---
10/31/20- PER CHART REVIEW WITH DR. ATKINS, PT'S ABILITY TO MAKE DECISIONS NEEDS TO BE EVALUATED AND A PSYCH EVAL HAS BEEN ORDERED. DR. ATKINS HAS ASKED THAT WE REACH OUT TO PT'S SON TO HELP WITH COORDINATING PT'S CARE. PT IS REFUSING TO GO TO ASSISTED LIVING EVEN THOUGH IT IS WHAT IS RECOMMENDED AND THAT PT IS NOT ABLE TO CARE FOR HIMSELF AND HIS IS NOT ABLE TO CARE FOR HIM EITHER. SPOKE WITH SON, MICHELLE, AND MICHELLE' , BILL. THEY EXPRESSED THEIR CONCERN ABOUT THE PT AND HIS INCREASE IN CARE NEEDS. THEY DO NOT FEEL THAT HE IS ABLE MAKE SOUND DECISIONS AND THAT PEOPLE AT THE TRAIL HOME THAT THEY LIVE HAVE TAKEN ADVANTAGE OF HIM BECAUSE OF THIS. SON REPORTS THAT THEY DO NOT HAVE ANY CAREGIVER AT THIS TIME. THEY REPORT THAT [facility] ONLY COMES A COUPLE OF TIMES A WEEK TO CHECK ON THEM. FAMILY HAS TRIED A COUPLE OF YEARS AGO GET PT AND HIS INTO [facility]. THEY HAVE EVEN OFFERED TO TAKE THEM HOME ([place]) WITH THEM TO CARE FOR THEM. PT AND HAVE REFUSED. DISCUSSED WITH THE FAMILY THAT A PSYCH EVAL HAS BEEN ORDERED TO ASSESS FOR POSSIBLE DEMENTIA. INFORMED THEM THAT THE PT IS REFUSING TO GO TO SNF AND WANTS TO GO HOME. FAMILY REPORTS THAT CHARLENE LUIS WITH [employer] [phone], HAS REACHED OUT TO THEM ALSO ABOUT GETTING THE PT PLACEMENT AND PT'S REFUSAL TO GO. SON AND [id number], ARE GOING TO CALL THE PT IN HIS ROOM, TRY TO TALK WITH HIM ABOUT ASSISTED LIVING AND ALSO HIS CODE STATUS. [id number] IS A NURSE. WILL REACH OUT TO FAMILY ONCE DR. LOREDO'S NOTE COME BACK. -JAIMEW
--- NOTE | 2020-10-31 18:00 | NUR ---
END OF SHIFT SUMMARY: PATIENT COOPERATIVE THROUGHOUT THE DAY. PATIENT VOICED LOUDLY A FEW TIMES THAT IT WAS TIME FOR HIM TO GO HOME. HOWEVER, THE PATIENT QUICKLY CALMED AFTER AN EXPLANATION ABOUT WHY HE NEEDED TO STAY. PATIENT TOOK MULTIPLE WALKS IN THE SCHNEIDER AND WAS UP TO HIS CHAIR FOR ALL OF HIS MEALS. PATIENT DENIED PAIN THROUGHOUT THE SHIFT. PATIENT DENIED SHORTNESS OF BREATH, CHEST PAIN, AND/OR CHEST TIGHTNESS WHEN AT REST OR WITH ACTIVITY. ABLE TO WEEN PATIENT OFF OF OXYGEN. PATIENT DENIED NEED FOR IT. RN WAS ABLE TO SPEAK WITH THE PATIENT'S , LONNIE. IT IS UNCLEAR HOW MUCH HELP THE CAREGIVERS PROVIDE TO THE PATIENT AND HIS . DISCUSSED WITH THIS [employer] CLERK ANA PAK. DR. LOREDO WAS ABLE TO ROUND ON THE PATIENT THIS EVENING.
--- NOTE | 2020-11-01 03:17 | NUR ---
SHIFT SUMMARY PATIENT HAD NO ACUTE CHANGES OBSERVED. AXOX 2 WITH HX ADVANCE DEMENTIA. ONE ASSIST W/FWW TO BSC. USES URINAL AT BEDSIDE SITTING OR STANDING WITH ASSIST. DENIES CHEST PAIN, SOB, AND N/V. VSS/AFEBRILE. ON ROOM AIR. REPORTED BACK PAIN X ONE AND TYLENOL GIVEN PER EMAR. PIV REMAINS INTACT. MULTIPLE BED EXIT ALARMS BEING IMPULSIVE, TO USE URINAL WITHOUT CALLING. BED IN LOWEST POSITION AND ALARM ACTIVATED. WILL CONTINUE TO MONITOR UNTIL DAY SHIFT NURSE ASSUMES CARE.
--- NOTE | 2020-11-01 16:25 | NUR ---
SHIFT SUMMARY PT UP IN CHAIR MOST OF THE DAY. AMBULATING TO BATHROOM WITH SBA NEEDED. PT CURRENTLY UP IN CHAIR VISITING WITH HIS . NO ACUTE CHANGES IN ASSESSMENT AT THIS TIME. VS REVIEWED. DISCAHRGE PLANNING WORKING ON A SAFE DISCHARGE. CALL LIGHT IN REACH.
--- NOTE | 2020-11-01 16:57 | NUR ---
11/01/20- PER CHART REVIEW, DR. LOREDO SAW THE PT YESTERDAY AND HAS FOUND THAT PT HAS ADVANCED DEMENTIA OF ALZHEIMER'S TYPE. DR. LOREDO FEELS THAT THE PT IS NOT CAPABLE TO MAKE DECISIONS AND IS IN NEED OF GUARDIANSHIP. A LETTER HAS BEEN PUT IN THE PT'S CHART. THE RECOMMENDATION BY THERAPY IS FOR THE PT TO GO TO ASSISTED LIVING BUT PT IS REFUSING AND WANTS TO GO HOME. PT HAD A SWALLOW EVAL DONE TODAY AND HE DID DO WELL AND PASSED THE SWALLOW TEST. DURING "LONG STAY MEETING," WAS INFORMED THAT PT'S SON CAN GO FOR GUARDIANSHIP NOW THAT WE HAVE THE LETTER. REACHED OUT TO [employer] WORKER, CHARLENE, SHE REPORTS THAT SON IS HESITANT ON GUARDIANSHIP DUE TO NOT WANTING TO RUIN HIS RELATIONSHIP WITH HIS FATHER. SHE IS GOING TO PUT THE PT'S CASE FOR REVIEW. CHARLENE ALSO STATES THAT CAREGIVERS THROUGH [facility] COME OUT FOR 30 HRS A WEEK BETWEEN THE PT AND HIS . SHARED THE SON'S CONCERNS ABOUT WHERE THE PT LIVES. SHE REPORTS THAT SHE HAS NOT HEARD ANYTHING ABOUT THIS BUT SHE WOULD DOCUMENT IT. -RACHEAL
--- NOTE | 2020-11-02 03:18 | NUR ---
SHIFT SUMMARY PATIENT APPEARED MORE TIRED AT START OF SHIFT. SLEEPING AFTER ASSESSMENT. AXOX 2 AND ONE ASSIST W/FWW TO BSC. USES URINAL AT BEDSIDE WITH ASSIST. ON ROOM AIR. VSS/AFEBRILE. DENIES PAIN, SOB, AND N/V. BED ALARM ON FOR URINARY URGENCY. CALL LIGHT IN REACH. BED IN LOWEST POSITION. WILL CONTINUE TO MONITOR UNTIL DAY SHIFT NURSE ASSUMES CARE.
--- NOTE | 2020-11-02 08:30 | NUR ---
PT PLEASANT TALKING ABOUT [employer] VALUES AND READING BIBLE. DENIES PAIN. PT A/O X3 BUT FORGET FUL ON SOME DETAILS. H/R REG, NO MURMER NOTED. NO TELE. LUNGS CLEAR EXCEPT CRACKLES LOW LEFT. ON R/A. RESP EASY, UNLABORED. BT X4 LAST BM TODAY. VOIDS STAND ASST WITH FWW. NO NEW CONCERNS NOTED TODAY. BED IN LOW POSITION, CALL LITE IN REACH, IMPULSIVE, BED ALARM ON FOR SAFETY
--- NOTE | 2020-11-02 16:14 | NUR ---
11/02/20- spoke with Dave at [facility], she states that they are not able to provide any caregiver services over the weekend and they do not provide any care overnight. They recommend that the pt stay through the weekend and then have the son work on emergency guardianship starting Thursday. The caregiver service is going to call the son and discuss his parent's care. Called son with update and recommendation. He is agreeable. Informed Dr. Packer of this also. -sadew
--- NOTE | 2020-11-02 18:06 | NUR ---
PT PLEASANT COOP TODAY. NO C/O PAIN. 1 MIN ASST TO BATHROOM. DID WELL. PT CONSISTANTLY ASKING TO GO HOME. PT STATES FEELS IMPROVING. NO NEW CONCERNS NOTED TODAY. BED IN LOW POSITION, CALLLITE IN REACH, BED ALARM ON FOR SAFETY
--- NOTE | 2020-11-03 07:33 | NUR ---
patient was quiet and cooperative with care. incont of urine. patient states "when I feel like I have to go, i"m going". Unable to understand use of call light, Pt. sits at side of bed and is unable to place his penis inside the urinal. No complaints of pain, SOB, hallucinations. Oz was able to go right back to sleep after each time he urinates.
--- NOTE | 2020-11-03 17:14 | NUR ---
PT PLEASANT COOP MOST OF DAY. WALKED TO SCHNEIDER END TODAY. IS TOO IMPULSIVE TO WAIT FOR SOMEONE TO HELP ASSIST WITH URINATION. READING BIBLE T/O DAY. NO C/O PAIN. CONSTANTLY TELLING ME WANTS TO GO HOME. NO NEW COMPLAINTS NOTED TODAY. BED IN LOW POSITION, CALL LITE IN REACH, BED ALARM ON FOR SAFETY,
--- NOTE | 2020-11-04 03:18 | NUR ---
Patient rested much better than previous night. Also, getting a much more accurate account of urine output as he is becoming more proficient at using the urinal successfully. No complaints of pain or discomfort overnight.
--- NOTE | 2020-11-04 05:15 | NUR ---
iv IN LEFT AC FLUSHES WELL BUT HAS NO DOMENTATION. PATIENT DID NOT WANT IV RESTARTED "IN MIDDLE OF NIGHT" NO SIGN OF A RIGHT ARM IV. WILL REQUEST DAYTIME RN ATTEMPT TO CONVINCE PATIENT TO ALLOW NEW IV TO BE PLACED
--- NOTE | 2020-11-04 16:57 | NUR ---
SHIFT SUMMARY NO ACUTE CHANGES T/O SHIFT, A&Ox3, CALM AND COOPERATIVE c CARE. CONT/INCONT. ABLE TO USE URINAL AT TIMES DURING SHIFT, INCONT OF STOOL. UP IN CHAIR FOR GOOD PORTION OF THE DAY. GOOD ORAL INTAKE. NO IV ACCESS ORDER PLACED, IV REMOVED. PT IS CURRENTLY SITTING IN HIS CHAIR WITH CHAIR ALARM ON AND CALL LIGHT WITHIN REACH. PT DOES NOT TYPICALLY USE CALL LIGHT, BUT WILL HOLLER OUT FOR HELP.
[2020-11-05 05:48] LABS: BASOPHILS ABSOLUTE AUTO 0.04 K/mm3 (0.00-0.23); BASOPHILS PERCENT AUTO 1 % (0-2); EOSINOPHILS ABSOLUTE AUTO 0.19 K/mm3 (0.00-0.68); EOSINOPHILS PERCENT AUTO 4 % (0-6); Hematocrit 34.3 % (37.0-53.0); Hemoglobin 11.4 g/dL (13.5-17.5); IMMATURE GRAN ABSOLUTE AUTO 0.04 K/mm3 (0.00-0.10); IMMATURE GRAN PERCENT AUTO 1 % (0-1); LYMPHOCYTES ABSOLUTE AUTO 1.36 K/mm3 (0.84-5.20); LYMPHOCYTES PERCENT AUTO 25 % (21-46); MONOCYTES PERCENT AUTO 13 % (4-13); Mean Corpuscular HGB 34.9 pg (26.0-34.0); Mean Corpuscular HGB Conc 33.2 g/dL (31.5-36.5); Mean Corpuscular Volume 105 fL (80-100); Mean Platelet Volume 9.5 fL (9.1-12.4); NEUTROPHILS ABSOLUTE AUTO 3.13 K/mm3 (1.96-9.15); NEUTROPHILS PERCENT AUTO 57 % (41-73); Platelet Count 326 K/mm3 (150-400); RDW Coefficient Variation 14.6 % (11.7-14.2); RDW Standard Deviation 56.6 fL (35.1-46.3); Red Blood Cell Count 3.27 M/mm3 (4.30-5.90); White Blood Cell Count 5.46 K/mm3 (4.00-11.30)
[2020-11-05 05:55] LABS: Anion Gap 4 mmol/L (6-16); Blood Urea Nitrogen 13 mg/dL (8-24); Bun/Creatinine Ratio 13.9 (12.0-20.0); CO2, Blood 29 mmol/L (21-32); Calcium, Blood 8.9 mg/dL (8.5-10.1); Chloride, Blood 102 mmol/L (98-108); Creatinine, Blood 0.93 mg/dL (0.60-1.20); Glomerular Filtration Rate >60 (60-); Glucose, Blood 101 mg/dL (70-99); Potassium, Blood 3.8 mmol/L (3.5-5.5); Sodium, Blood 135 mmol/L (136-145)
--- NOTE | 2020-11-05 06:42 | NUR ---
PATIENT SLEPT MOST OF THE NIGHT WAKING ONLY TO URINATE 3-4 TIMES. NO COMPLAINTS OF PAIN OR DISCOMFORT OVERNIGHT. NO CHANGES IN ASSESSMENT FROM PREVIOUS SHIFT
--- NOTE | 2020-11-05 12:03 | NUR ---
11/05/20-11/05/20- PER CHART REVIEW WITH DR. DIXON, PT'S HAS EXPRESSED THAT SHE DOES NOT WANT TO TAKE THE PT HOME. HE STATES THAT HE WOULD BE WILLING TO D/C THE PT HOME IF IT WAS APPROVED BY APS/[employer]D, THAT PT HAS CAREGIVERS SET UP TO COME INTO THE HOME AND THAT PT NOR HIS WILL STOP FROM CAREGIVERS FROM COMING INTO THE HOME. DR. DIXON HAS CONTACTED THE [employer] TO HAVE PT'S LICENSE SUSPENDED BECAUSE HE IS NOT SUPPOSED TO DRIVE. SPOKE WITH SON WHO STATED THAT HE HAS CALLED TRUCK DRIVER'S OFFSIDER FOR GUARDIANSHIP AND HE STATES THAT HE IS NOT ABLE TO AFFORD THE FEES ASSOCIATED WITH BECOMING GUARDIAN. LET HIM KNOW THAT WOULD REACH OUT TO HOSPITAL CAREGIVERS FOR HELP WITH THIS. PAZ TOUSSAINT STEEL ANALYST CALLED AND SPOKE WITH SERGIO CHARLES TO SEE IF THE HOSPITAL IS ABLE TO DELORIS THE COSTS OF GUARDIANSHIP. PT'S SON WOULD NEED TO CONTACT ALISHA LOPEZ [phone] AND HAVE ALL FEES SENT TO THE HOSPITAL. CALLED SON, UPDATED HIM WITH THE ABOVE INFORMATION AND HE WILL CALL ALISHA TO WORK ON GUARDIANSHIP. SON WAS GRATEFUL FOR THIS HE WAS WORRIED HE WAS LETTING HIS FATHER DOWN. -RACHEAL
--- NOTE | 2020-11-05 18:10 | NUR ---
PT PLEASANT AND COOPERATIVE WITH CARE TODAY. NO C/O OF PAIN OR DISCOMFORT. WAITING FOR PLACEMENT. NO ACUTE CHANGES NOTED THIS SHIFT, WILL CONTINUE TO MONITOR AND REPORT TO ONCOMING RN
--- NOTE | 2020-11-05 19:26 | NUR ---
VERIFIED VIDEO MONITORING CALLED [facility] BACK TENDER. VERIFIED VIDEO MONITORING IS IN PLACE
--- NOTE | 2020-11-06 04:23 | NUR ---
SHIFT SUMMARY ADMITTED FOR AMS/LLL PNEUMONIA/SEPSIS. LIMITED CODE. HE IS A 1 ASSIST W/FWW. HE IS AWAITING PLACEMENT IN A FACILITY. HE USES A URINAL AT BEDSIDE. HE WAS PLEASANT AND COOPERATIVE WITH CARE. NO NEW CONCERNS THIS SHIFT
--- NOTE | 2020-11-06 13:20 | NUR ---
11/06/20-Dawit returned call and was able to update him on conversation with [employer] and Dr. Montejo. He has called and left a message with car sealer and is waiting to hear back from him. We agreed to contact each other with any updates. -vicper chart review with Dr. Montejo, pt still is needing placement and he is refusing to go talk with anyone anymore and is wanting to go home. We discussed that pt's case is going to need a social worker assistant to help with barriers to discharge, son working on guardianship and pt refusing to go to a facility. Reached out to Sri Silva for help with pt. She will get back to magnetic tape typewriter operator with another supportive person who can aid in pt's case. Attempted to reach son, he will call back when he is available. -vic
--- NOTE | 2020-11-06 16:44 | NUR ---
PT VERY ANXIOUS TO LEAVE, STREET CLOTHES OUT SO HE CAN GET DRESSED IF DR RELEASES HIM. SEVERAL WALKS IN SCHNEIDER WAY AND LONG WALK ON MAIN UNIT SCHNEIDER WITH PHYSICAL THERAPY. DENIES PAIN OR OTHER DISCOMFORT. WILL CONTINUE TO MONITOR.
--- NOTE | 2020-11-06 19:23 | NUR ---
VERIFIED VIDEO MONITORING CALLED [facility] TAFE LECTURER AND VERIFIED CAMERA IS ON
--- NOTE | 2020-11-07 04:24 | NUR ---
SHIFT SUMMARY ADMITTED FOR AMS/LLL PNEUMONIA/SEPSIS. LIMITED CODE. PLAN IS FOR GUARDIANSHIP, THEN PLACEMENT. PT CALLS OUT, BUT DOES NOT USE THE CALL BUTTON. PT HAS BEEN AMBULATING TO THE BATHROOM, BUT I THINK WHEN HE IS SLEEPING HARD - HE SHOULD BE ASSISTED AT LEAST STANDBY. HE IS PLEASANTLY CONFUSED. HE IS INSISTING HE WANTS TO GO HOME IN THE MORNING.
--- NOTE | 2020-11-07 12:20 | NUR ---
11/07/20- per chart review with Dr. Montejo, still pursuing guardianship. Tania with [facility] is helping with this. Called and spoke with son, he has not heard from postal service sectional center manager. Informed him that hospital is going to be assisting with guardianship. Will update him as we move forward. -vic
--- NOTE | 2020-11-07 17:31 | NUR ---
SHIFT SUMMARY PT CONFUSED AND BIG LAGOON. PT CONSISTENTLY GETS UP AND THINKING THAT HE WILL BE GOING HOME TODAY. PT DENIES PAIN OR SOB. ENCOURAGE THE USE OF FWW.AWAITS PLACEMENT AND DC PLAN. BED IS IN THE LOWEST POSITION, CALL LIGHT WITHIN REACH, AND ON CAMERA.
--- NOTE | 2020-11-08 05:29 | NUR ---
SHIFT SUMMARY PT WAS VERY UPSET AT START OF SHIFT, DEMANDING TO LEAVE, SLEPT T/O THE NIGHT AFTER NIGHT MEDS ADMIN, SET OFF BED ALARM SEVERAL TIMES TO USE BATHROOM DURING THE NIGHT, HES BEEN PLEASANT AND COOPERATIVE WITH CARE THIS AM, BEDRESTING IN BED WATCHING TV AT THIS TIME, CALL LIGHT IN REACH, WILL CONT TO MONITOR UNTIL REPORT GIVEN TO DAY RN.
--- NOTE | 2020-11-08 15:02 | NUR ---
11/08/20- waiting to hear from pt's son, he will call and update staff once he has heard from cartography teacher to start guardianship. -vic
--- NOTE | 2020-11-08 16:15 | NUR ---
NO ACUTE CHANGES THIS SHIFT. PATIENT A/OX3, FORGETFUL AT TIMES. AMBULATING IN HALLS WITH FWW AND SBA. FALL PRECAUTIONS IN PLACE. URGENCY WITH URINATION, CONTINENT THIS SHIFT. AWAITING GUARDIANSHIP AND PLACEMENT.
--- NOTE | 2020-11-09 04:23 | NUR ---
SHIFT SUMMARY PT HAS BEEN PLEASANT & COOPERATIVE, NO C/O ANY KIND, SLEPT T/O THE NIGHT, AWAKE NOW EATING SNACK, CALL LIGHT IN REACH, BED ALARM ACTIVE, WILL CONT TO MONITOR UNTIL REPORT GIVEN TO DAY RN.
--- NOTE | 2020-11-09 12:12 | NUR ---
11/08/20- Received call from pt's son, he has talked with the fun house operator's office and they asked if there is someone who lives closer to be the pt's guardian. Son, Dawit, told them that there is no one, pt's is not mentally sound to be guardian and also is not willing to be. Son let them know that he is willing to be his dad's guardian. Son will call and LM on my work phone after he speaks with the fun house operator to provide update/plan. Tania with [facility], has reached out to [facility] and they will come on Thursday to assess the pt for placement. They are willing to take both the pt and his . -sadew waiting to hear from pt's son, he will call and update staff once he has heard from fun house operator to start guardianship. -vic
--- NOTE | 2020-11-09 17:09 | NUR ---
NO ACUTE CHANGES THIS SHIFT. AWAITING GUARDIANSHIP AND PLACEMENT.
--- NOTE | 2020-11-10 04:33 | NUR ---
SHIFT SUMMARY ALERT, ABLE TO MAKE NEEDS KNOWN. COOPERATIVE WITH CARE. ANSWERS QUESTIONS APPROPRIATELY. FORGETFUL AT TIMES. NO C/O PAIN/DISCOMFORT. APPEARED TO REST WELL OVERNIGHT. AMBULATES WITH A STEADY GAIT USING FWW. NO ACUTE CHANGES NOTED OVERNIGHT. VSS/AFEBRILE. BED IN LOWEST POSITION; ALARM ON. CALL LIGHT AND BELONGINGS WITHIN REACH. CONTINUE WITH CURRENT PLAN OF CARE. REPORT TO ONCOMING RN.
--- NOTE | 2020-11-10 18:50 | NUR ---
SHIFT SUMMARY: NO ACUTE CHANGES TO REPORT THIS SHIFT. PT HX DEMENTIA; ALERT. NO C/O PAIN OR NAUSEA THIS SHIFT. HIGH FALL RISK; RELUCTANT TO USE WALKER; CAMERA ON FOR SAFETY. AWAITING GUARDIANSHIP & PLACEMENT. WCTM.
--- NOTE | 2020-11-11 04:24 | NUR ---
SHIFT SUMMARY ALERT, ABLE TO MAKE NEEDS KNOWN. COOPERATIVE WITH CARE. ANSWERS QUESTIONS APPROPRIATELY. EXITS BED WITHOUT WARNING; BED ALARM REMAINS ON WHILE IN BED. ENCOURAGE USE OF FWW/GB. NO ACUTE CHANGES NOTED. VSS/AFEBRILE. APPEARED TO REST MUCH OF THE NIGHT. BED REMAINS IN LOWEST POSITION. CALL LIGHT AND BELONGINGS WITHIN REACH. CONTINUE WITH CURRENT PLAN OF CARE. REPORT TO ONCOMING RN.
--- NOTE | 2020-11-11 18:28 | NUR ---
SHIFT SUMMARY: NO ACUTE EVENTS TO REPORT THIS SHIFT. PT HX DEMENTIA; ALERT; CALM AND COOPERATIVE WITH CARE. NO C/O PAIN THIS SHIFT. PT MEDICALLY STABLE; AWAITING GUARDIANSHIP & PLACEMENT. WCTM.
--- NOTE | 2020-11-12 04:12 | NUR ---
SHIFT SUMMARY ALERT, ABLE TO MAKE NEEDS KNOWN. STATES VERY EAGER TO GO HOME TO HIS . COOPERATIVE WITH CARE. ANSWERS QUESTIONS APPROPRIATELY. NO C/O PAIN/DISCOMFORT. CONTINUES TO BE IMPUSLIVE GETTING OUT OF BE WITHOUT WARNING; BED ALARM SET. ENCOURAGE USE OF FWW /c GB. NO ACUTE CHANGES NOTED. VSS/AFEBRILE. APPEARED TO REST WELL OVERNIGHT. BED REMAINS IN LOWEST POSITION. CALL LIGHT AND BELONGINGS WITHIN REACH. CONTINUE WITH CURRENT PLAN OF CARE. REPORT TO ONCOMING RN.
--- NOTE | 2020-11-12 16:20 | NUR ---
SHIFT SUMMARY- PT IS ALERT, PLESANT AND COOPERATIVE. HE IS EATING AND DRINKING WELL. HE IS AMBULATING IN THE HALLWAY WITH A FWW. HE WORKED WITH PT TODAY AND TOLERATED WELL. HE HAS BEEN UP TO THE CHAIR FOR MEALS. HIS BED IS IN THE LOW POSITION AND CALL LIGHT IS WITHIN REACH.
--- NOTE | 2020-11-12 17:36 | NUR ---
11/12/20-Received call from son Dawit, he reports that he spoke with the blank driller and was advised to go with professional guardian because he lives too far away to manage pt. Son is asking if the hospital can help get a guardian for him. Will work with [facility] on finding guardian and update son along the process. He would like to know information about those who could potentially be his dad's guardian prior to picking one. Received call from staff at [facility], they were going to do an assessment on the pt tomorrow for placement but this has been cancelled due to needing to find guardian for pt. Once we have the process started for guardianship, they will schedule an assessment. Yoselyn Bowser will be available in the morning and Mary Mcguire in the afternoon to contact once we are ready to proceed forward. -Mesfin with [facility] and they report that pt and can have their dog at the facility but they must be able to take the dog out to go the bathroom, feed the dog and care 100% for the dog. They will make note on the pt's application that they have a small wiener dog. -vicCalled and spoke with son, Dawit. He spoke with rotary cutter and scheduled a phone meeting today at 1pm. Dawit states that his dad does not want to talk with him because of the discussion of putting pt in a custodial. Son is starting to struggle with this plan because he feels like he is taking away his dad's rights and not following his wishes. Discussed that it's not him taking a way those rights but the fact he has been deemed unable to make safe and good decisions due to dementia/Alzheimer s. And because there is no way to ensure that pt and his will allow caregivers into the home to help with their care needs. Pt does not remember things, conversations, etc. We are just trying to make sure that pt is safe along with his and their needs are being taken care of. Son will call after he gets off the phone with the blank driller and will provide update. -vic
--- NOTE | 2020-11-12 22:05 | NUR ---
WAS AWAKE, AMBULATING ABOUT ROOM WITH WALKER AT [facility], THEN WAS ASSISTED TO BED. TOOK HS MEDS AND IS CURRENTLY RESTING QUIETLY WITH CALL LIGHT IN REACH
--- NOTE | 2020-11-13 03:06 | NUR ---
OR FIRST ASSIST REGISTERED NURSE SUMMARY AT [facility], PT WSA UP AND ABOUT ROM WITH WALKER. AFTER HAVING RECEIVED HS MEDS, HAS BEEN RESTING QUIETLY WITH FEW INTERRUPTIONS AND THOSE WERE ONLY TO GET UP TO GO TO THE BATHROOM. BED ALARM ON AND CALL LIGHT IN REACH. NO NOTED S/S ACUTE DISTRESS AT THIS TIME
--- NOTE | 2020-11-13 14:30 | NUR ---
11/13/20- per chart review with Dr. León, pt and his spoke with him and they are adamant that he be d/c home. Set up transport home through [facility], pt to be picked up in ER lobby at 4pm. Home health was ordered through [facility]. LMOM with [employer] child welfare caseworker Darlene Salgado to update on pt's discharge. was called and updated on discharge plan home and ride home. Called and spoke with son, updated him on discharge plan. [facility] has been called and updated on pt discharging home. -vic
[2020-11-13] MEDS ORDERED: DOCU100 PO (15:07)
[2020-11-13] MEDS ORDERED: QUET100 PO (15:07)
--- NOTE | 2020-11-13 15:20 | NUR ---
REVIEW D'C WITH VIA PHONE. AWARE GOING HOME ABOUT 4PM. [facility]QUEL DOSE CHANGES AND S.O. STS "SHE TAKES THAT MED TOO." AWARE CAN CALL AMBULANCE IF ANY PROBLEMS. [facility] TO CALL WITH F/U APPT.
--- NOTE | 2020-11-13 15:55 | NUR ---
TO E.R. SIDE FOR RIDE HOME. PATIENT AWARE REVIEWED INSTRUCTIONS W/ AND MEDS AT [facility]
== END 2020-11-13 16:00 | disposition home health service (06) | DRG 871 ==
LOC: ER 04:46 → ICUW 06:07 → MEDS 06:07 → ICUW 08:09 → PCU 10-22 15:15 → ICUW 10-22 17:48 → PCU 10-24 17:00 → MEDS 10-25 11:43
PROVIDERS: Emergency Medicine; Family Medicine; Internal Medicine; Pharmacist; ADMIT Internal Medicine
PROC: 06HY33Z Insertion of Infusion Device into Lower Vein, Percutaneous Approach (ICD-10-PCS; principal; 2020-10-21)
DX: A41.9 Sepsis, unspecified organism (principal); J18.9 Pneumonia, unspecified organism; J96.01 Acute respiratory failure with hypoxia; G92 Toxic encephalopathy; F03.91 Unspecified dementia, unspecified severity, with behavioral disturbance; I48.20 Chronic atrial fibrillation, unspecified; R64 Cachexia; K21.9 Gastro-esophageal reflux disease without esophagitis; E11.22 Type 2 diabetes mellitus with diabetic chronic kidney disease; Z79.899 Other long term (current) drug therapy; Z79.84 Long term (current) use of oral hypoglycemic drugs; F32.9 Major depressive disorder, single episode, unspecified; E78.5 Hyperlipidemia, unspecified; E11.51 Type 2 diabetes mellitus with diabetic peripheral angiopathy without gangrene; K59.09 Other constipation; I12.9 Hypertensive chronic kidney disease with stage 1 through stage 4 chronic kidney disease, or unspecified chronic kidney disease; Z87.891 Personal history of nicotine dependence; D63.1 Anemia in chronic kidney disease; E87.6 Hypokalemia; N18.2 Chronic kidney disease, stage 2 (mild); R62.7 Adult failure to thrive; G47.00 Insomnia, unspecified; F22 Delusional disorders; E78.00 Pure hypercholesterolemia, unspecified; R65.20 Severe sepsis without septic shock; D69.6 Thrombocytopenia, unspecified; I48.0 Paroxysmal atrial fibrillation; E88.09 Other disorders of plasma-protein metabolism, not elsewhere classified; Z78.1 Physical restraint status
CPT/HCPCS: 36415; 36569; 36600; 51702; 71045; 71260; 80048; 80053; 80202; 82607; 82746; 82803; 82947; 83605; 83735; 84100; 84132; 84484; 85014; 85018; 85025; 85379; 87040; 92526; 92610; 93005; 93010; 93306; 94644; 94760; 96365-59; 96366-59; 96367-59; 97110; 97116; 97162; 97166; 97530; 97535; 99285-25; A9270; C1751; J0696; J1630; J1650; J2060; J2543; J3370; J3475; J3480; J7030; J7050; J7060; P9046; Q9967

== ENCOUNTER 2022-12-27 20:00 | Emergency (ER) | payer OTHER ==
[~2022-12-27] VITALS: Ht 172.7 cm; Wt 71.2 kg
[~2022-12-27 20:00] MED LIST changes: +QUET100 PO
== END 2022-12-27 20:56 | disposition home or self-care (01) ==
LOC: ER 20:00
DX: S60.222A Contusion of left hand, initial encounter (principal); X58.XXXA Exposure to other specified factors, initial encounter; Z79.899 Other long term (current) drug therapy; E11.9 Type 2 diabetes mellitus without complications; F17.220 Nicotine dependence, chewing tobacco, uncomplicated
CPT/HCPCS: 99284